=== PATIENT | female | born 1925 | race Caucasian/White ===

== ENCOUNTER 2016-04-13 16:21 | Inpatient (IN) | payer OTHER, MEDICARE ==
[~2016-04-13] VITALS: Ht 167.6 cm; Wt 72.6 kg
[~2016-04-13 16:21] MED LIST: ALENDRONATE SOD70 M2 PO; DAILY MULTIPLE1 EACH PO; EXELON1 EAC1 TOP; FOLIC ACID1 M1 PO; OSCAL PO; SENNA8.6 M3 PO; TRAZODONE HCL50 M1 PO; VITAMIN D350000 UNIT PO
--- NOTE | 2016-04-13 16:27 | NUR ---
89 YO FEMALE BIBA FROM SNF. PT HAD AN UNWITNESSED FALL INJURING HER R HIP. HER EMS, PTS ROOMATE (WHO HAS DEMENTIA) WITNESSED THE FALL AND STATES PT DID NOT HIT HEAD. PT NOTED WITH SHORTNENING AND ROTATION TO R LEG. PT HX OF DEMENTIA
--- NOTE | 2016-04-13 16:43 | ED MVC/FALL/TRAUMA COMPLAINT ---
See Addendum History of Present Illness General Chief Complaint: Hip Injury Stated Complaint: UNWITNESSED FALL, R HIP PAIN Source: patient, old records Exam Limitations: confusion, dementia Vital Signs & Intake/Output Vital Signs & Intake/Output Vital Signs Date Time Temp Pulse Resp B/P Pulse O2 O2 Flow FiO2 Ox Delivery Rate 04/13 2057 98.4 73 18 131/61 90 Room Air 04/13 1836 94 Room Air Room Air 04/13 183 97.3 72 20 144/69 94 Room Air 04/13 1627 97.6 79 18 168/74 93 Room Air Allergies Coded Allergies: donepezil (UNKNOWN 09/02/15) Reconcile Medications Alendronate Sodium 70 MG TABLET 1 TAB PO QW BONE (Reported) in the morning, at least 30 minutes before the first food, beverage, or medication of the day Cholecalciferol (Vitamin D3) (Vitamin D3) 50,000 UNIT CAPSULE 1 CAP PO Q30D SUPPLEMENT (Reported) Folic Acid 1 MG TABLET 1 TAB PO QHS SUPPLEMENT (Reported) Multivitamin (Daily Multiple Vitamin) 1 EACH TABLET 1 TAB PO QHS SUPPLEMENT ( Reported) [OSCAL] TAB SUPPLEMENT (Reported) Rivastigmine (Exelon) 9.5 MG/Patch PAT 1 PAT TOP DAILY UNK (Reported) Sennosides (Senna) 8.6 MG TABLET 2 TAB PO BID CONSTIPATION (Reported) Trazodone HCl 50 MG TABLET 0.5 TAB PO QHS UNK (Reported) Triage Note: 89 YO FEMALE RADHAA FROM [facility]. PT HAD AN UNWITNESSED FALL INJURING HER R HIP. HER EMS, PTS ROOMATE (WHO HAS DEMENTIA) WITNESSED THE FALL AND STATES PT DID NOT HIT HEAD. PT NOTED WITH SHORTNENING AND ROTATION TO R LEG. PT HX OF DEMENTIA Triage Nurses Notes Reviewed? yes Onset: Abrupt Duration: hour(s):, constant, continues in ED Timing: recent history Severity: moderate, severe Method of Injury: fall Loss of Consciousness: unsure No Modifying Factors: none HPI: 89-year-old female comes into emergency room for further evaluation of right hip pain/leg pain after falling at residential. Unwitnessed fall. Patient has gross deformity. Patient not able to ambulate. History of dementia. History is very limited. Patient had a moderate amount of distress denies any other associated symptoms. (LISA DELEON) Past History Travel History Traveled to [place] past 21 day No Medical History Any Pertinent Medical History? see below for history Neurological: dementia Cardiovascular: hypertension, hyperlipidemia Renal: UTI Musculoskeletal: osteoarthritis, R WRIST FX R FEM NECK FX Psychiatric: anxiety Cancer(s): L BREAST MASS Surgical History Surgical History: non-contributory Psychosocial History Who do you live with Patient/Self Services at Home NONE What is your primary language Hebrew Tobacco Use: Never used Family History Hx Contributory? No (LISA DELEON) Review of Systems Review of Systems Constitutional: Reports: no symptoms. Eyes: Reports: no symptoms. Ears, Nose, Throat, Mouth: Reports: no symptoms. Respiratory: Reports: no symptoms. Cardiovascular: Reports: no symptoms. Gastrointestinal/Abdominal: Reports: no symptoms. Genitourinary: Reports: no symptoms. Musculoskeletal: Reports: see HPI. Skin: Reports: no symptoms. Neurological/Psychological: Reports: no symptoms. All Other Systems: Reviewed and Negative (LISA DELEON) Physical Exam Physical Exam General Appearance: alert, awake, moderate distress Head: atraumatic, normal appearance Eyes: Bilateral: normal appearance, EOMI, normal inspection. Ears, Nose, Throat, Mouth: hearing grossly normal Neck: normal inspection, full range of motion Respiratory: normal breath sounds, no respiratory distress Cardiovascular: regular rate/rhythm Gastrointestinal: soft Back: normal inspection Extremities: deformity right hip/femur, swelling, limited range of motion, Neurologic/Psych: disoriented x 3 Skin: intact, normal color Core Measures ACS in differential dx? No Severe Sepsis Present: No Septic Shock Present: No (LISA DELEON) Progress Differential Diagnosis: abd injury, C/T/L spine injury, ext injury, ICH, pelvis injury, pnemothorax, spinal cord injury Plan of Care: Orders Procedure Date/time Status Nothing by Mouth 04/14 B Active Patient Data 04/13 2219 Active Saline Lock 04/13 2111 Active Misc Message 04/13 2111 Active ED Holding Orders 04/13 2111 Active Admit to inpatient 04/13 2111 Active Code Status 04/13 2111 Active [place], Insertion/Removal/Asses 04/13 2038 Active CULTURE,URINE 04/13 2038 Active URINALYSIS 04/13 2038 Active XRY-FEMUR, 2 VIEWS RIGHT 02/03 2019 Active Vital Signs 04/13 2015 Active PARTIAL THROMBOPLASTIN TIME 04/13 1636 Complete PROTHROMBIN TIME 04/13 163 Complete COMPREHENSIVE METABOLIC PANEL 04/13 163 Complete CBC WITHOUT DIFFERENTIAL 04/13 163 Complete EKG 04/13 163 Active TYPE & SCREEN (NOT X-MATCH) 04/13 163 Complete Laboratory Tests 04/13/16 1653: Anion Gap 9, Estimated GFR > 60, BUN/Creatinine Ratio 12.9, Glucose 102 H, Calcium 8.7, Total Bilirubin 0.9, AST 23, ALT 31, Alkaline Phosphatase 70, Total Protein 7.1, Albumin 3.5, Globulin 3.6, Albumin/Globulin Ratio 1.0 L, PT 12.1, INR 1.15, APTT 32, CBC w Diff NO MAN DIFF REQ, RBC 4.44, MCV 87.8, MCH 28.8, RDW 13.6, MPV 9.3, Gran % 74.3, Lymphocytes % 16.4 L, Monocytes % 7.9, Eosinophils % 1.0, Basophils % 0.4, Absolute Granulocytes 5.6, Absolute Lymphocytes 1.2, Absolute Monocytes 0.6, Absolute Eosinophils 0.1, Absolute Basophils 0, PUBS MCHC 32.8 L Microbiology 04/13 2038 URINE ROUT: Urine Culture - ORD Diagnostic Imaging: Viewed by Me: Radiology Read, CT Scan. Discussed w/RAD: Radiology Read, CT Scan. Radiology Impression: EXAM TYPE: RAD - XRY-ANKLE 3 OR MORE VIEWS R; XRY-HIP 2-3 VIEWS, RIGHT; XRY-KNEE, RIGHT EXAMINATION: XR HIP, RIGHT XR KNEE, RIGHT XR ANKLE , RIGHT CLINICAL INFORMATION: Status post fall. Pain. COMPARISON: None TECHNIQUE : Two views of the right knee. 2 views of the right hip. 3 views of the right ankle. FINDINGS: Right hip: There is a right hip hemiarthroplasty. The femoral head component articulates appropriately with the acetabulum. No periprosthetic lucency or fracture. The visualized portion of the hemipelvis is intact. Right knee: There is a comminuted mid to distal right femoral diaphyseal fracture. There is posterior angulation of the distal fragment. There is medial displacement of the distal fragment. Alignment at the knee is maintained. Mild to moderate tricompartmental degenerative changes are present. Right ankle: No acute fracture or dislocation. The ankle mortise is congruent. Mild soft tissue swelling. Prominent heel spurs. Vascular calcifications noted. IMPRESSION: Comminuted mid to distal femoral diaphyseal fracture with displacement and angulation of the distal fragment. No acute fracture at the right hip or right ankle. Right hip hemiarthroplasty intact. Degenerative changes at the ankle. DICTATED BY: THIERRY PETTY MD DATE/TIME DICTATED:04/13/161824 HIDE SELECTOR:NAT DATE/TIME TRANSCRIBED:04/13/161824, SERVICE DATE : 04/13/16 EXAM TYPE: CAT - CT HEAD WO IV CONTRAST EXAMINATION: CT HEAD WITHOUT CONTRAST CLINICAL INFORMATION: Trauma, fall with pain. COMPARISON: 09/01 TECHNIQUE: Contiguous axial imaging was performed from the skull base to vertex without intravenous contrast. DLP: 601 mGy-cm. FINDINGS: There is no evidence of acute intracranial hemorrhage or territorial infarction. No abnormal mass effect or midline shift is seen. Melton to white matter differentiation is well preserved. No extra-axial fluid collections are identified. No hydrocephalus. Proportional prominence of the ventricles and sulcal spaces is consistent with moderate volume loss. Patchy periventricular and deep white matter hypoattenuation is consistent with moderate small vessel ischemic changes. The osseous structures and soft tissues are normal. There is an air- fluid level within the left maxillary sinus. The remaining paranasal sinuses are well aerated. The mastoid air cells are well-aerated. IMPRESSION: No acute intracranial pathology. Moderate volume loss with small vessel ischemic changes. DICTATED BY: JOVANNY BEASLEY,THIERRY DATE/TIME DICTATED:04/13/161702 Initial ED EKG: normal intervals, normal p-waves, normal sinus rhythm, rate (65, pacs) Hand-Off Endorsed To: CALE REA MD Endorsed Time: 2000 Pending: other (othro consult) Comments: 04/13/2016 7:41:37 PM Multiple calls have been placed orthopedic. I spoke with Dr. Duvall. The patient is a patient of [facility]. Multiple calls have been placed to their service with no response at this time. Waiting on them to call back before patient can be admitted. (XAVIER KEARNS,LISA) Departure Departure Disposition: HOME OR SELF CARE Condition: Stable Clinical Impression Primary Impression: Right femoral shaft fracture Referrals: Mimi JC MD (PCP/Family) Departure Forms: Customer Survey General Discharge Information Admission Note Documentation of Exam: Documentation of any treatments & extenuating circumstances including Concerns Regarding Discharge (functional status, medication knowledge or non-compliance, living conditions, etc.) that warrant an admission rather than observation: Patient will require surgery. High risk. Medical clearance. IV pain control. (XAVIER KEARNS,LISA) Departure Comments Discussed with Dr. Tovar. If hospital team is able to medically clear the patient this morning, he will take her to surgery. Admission Note Spoke With: MUSHTAQ COBOS MD (ÁLVARO BEASLEY,CALE Marie) Critical Care Note Critical Care Note Critical Care Time: 30-74 min (LISA DELEON)
--- NOTE | 2016-04-13 16:51 | NUR ---
IV EST. PT MEDICATED WITH 2MG IV MORPHINE. [facility].
[2016-04-13 17:05] LABS: ABSOLUTE BASOPHIL COUNT 0 /CUMM (0.0-0.2); ABSOLUTE EOSINOPHIL COUNT 0.1 /CUMM (0.0-0.7); ABSOLUTE GRANULOCYTE CT 5.6 /CUMM (1.4-6.5); ABSOLUTE LYMPH COUNT 1.2 /CUMM (1.2-3.4); ABSOLUTE MONOCYTE COUNT 0.6 /CUMM (0.10-0.60); BASOPHIL % 0.4 % (0.0-2.0); GRANULOCYTE % 74.3 % (42.2-75.2); MEAN CORPUSCULAR HGB 28.8 PG (27.0-31.0); MEAN CORPUSCULAR HGB CONC 32.8 G/DL (33.0-37.0); MEAN CORPUSCULAR VOLUME 87.8 FL (81.0-99.0); MEAN PLATELET VOLUME 9.3 FL (7.4-10.4); PLATELET COUNT 144 /CUMM (130-400); RBC DISTRIBUTION WIDTH 13.6 % (11.5-14.5); RED BLOOD CELL CT 4.44 /CUMM (4.20-5.40); WHITE BLOOD CELL COUNT 7.6 /CUMM (4.8-10.8)
[2016-04-13 17:15] LABS: PT 12.1 SEC (9.4-12.5); PTT 32 SEC (25-37)
--- NOTE | 2016-04-13 17:16 | CT SCAN REPORT ---
EXAMINATION: CT HEAD WITHOUT CONTRAST CLINICAL INFORMATION: Trauma, fall with pain. COMPARISON: 09/02/2015 TECHNIQUE: Contiguous axial imaging was performed from the skull base to vertex without intravenous contrast. DLP: 601 mGy-cm. FINDINGS: There is no evidence of acute intracranial hemorrhage or territorial infarction. No abnormal mass effect or midline shift is seen. Melton to white matter differentiation is well preserved. No extra-axial fluid collections are identified. No hydrocephalus. Proportional prominence of the ventricles and sulcal spaces is consistent with moderate volume loss. Patchy periventricular and deep white matter hypoattenuation is consistent with moderate small vessel ischemic changes. The osseous structures and soft tissues are normal. There is an air-fluid level within the left maxillary sinus. The remaining paranasal sinuses are well aerated. The mastoid air cells are well-aerated. IMPRESSION: No acute intracranial pathology. Moderate volume loss with small vessel ischemic changes.
--- NOTE | 2016-04-13 18:30 | RADIOLOGY REPORT ---
EXAMINATION: XR HIP, RIGHT XR KNEE, RIGHT XR ANKLE, RIGHT CLINICAL INFORMATION: Status post fall. Pain. COMPARISON: None TECHNIQUE: Two views of the right knee. 2 views of the right hip. 3 views of the right ankle. FINDINGS: Right hip: There is a right hip hemiarthroplasty. The femoral head component articulates appropriately with the acetabulum. No periprosthetic lucency or fracture. The visualized portion of the hemipelvis is intact. Right knee: There is a comminuted mid to distal right femoral diaphyseal fracture. There is posterior angulation of the distal fragment. There is medial displacement of the distal fragment. Alignment at the knee is maintained. Mild to moderate tricompartmental degenerative changes are present. Right ankle: No acute fracture or dislocation. The ankle mortise is congruent. Mild soft tissue swelling. Prominent heel spurs. Vascular calcifications noted. IMPRESSION: Comminuted mid to distal femoral diaphyseal fracture with displacement and angulation of the distal fragment. No acute fracture at the right hip or right ankle. Right hip hemiarthroplasty intact. Degenerative changes at the ankle.
--- NOTE | 2016-04-13 18:32 | RADIOLOGY REPORT ---
EXAMINATION: 1. CHEST PORTABLE. 2. RIGHT RIBS. CLINICAL INFORMATION: Fall. Right rib pain. COMPARISON: Chest x-ray 09/02/2015 TECHNIQUE: Single view chest portable 5:29 PM. 3 views of right ribs. FINDINGS: No acute change of the chest. No pleural effusion. No pneumothorax. Heart size is enlarged. Mild increased interstitial lung markings similar prior chest exam. There are calcifications of thoracic aorta. No displaced right rib fracture. Chronic deformity of the right humeral head and neck from old healed fracture IMPRESSION: No acute change of chest. No displaced right rib fracture.
--- NOTE | 2016-04-13 18:50 | NUR ---
PT MEDICATED WITH DILAUDID PER ORDERS SISTER REMAINS AT BEDSIDE
--- NOTE | 2016-04-13 19:03 | NUR ---
PT TURNED WITH ASSIST OF 3 STAFF TO REMOVE EXTRA LINENS AND FIX SHEET UNDERNEATH HER S/P CT SCAN. SISTER REMAINS AT BEDSIDE.
--- NOTE | 2016-04-13 19:31 | NUR ---
ASSUMED CARE FROM LUKE Galicia RN
--- NOTE | 2016-04-13 19:50 | NUR ---
PT REPORTS PAIN DECREASING AFTER BEING MEDICATED. PT APPEARS COMFORTBALE. FAMILY AT BEDSIDE.
--- NOTE | 2016-04-13 20:41 | NUR ---
PT MEDICATED FOR PAIN AND LEG SPLINTED.
--- NOTE | 2016-04-13 21:29 | NUR ---
PT AWAKE AND ORIENTED TO PERSON. RESP UNLABORED. SKIN WARM AND DRY. FAMILY AT BEDSIDE. WILL CONTINUE TO MONITOR.
--- NOTE | 2016-04-13 22:15 | History & Physical ---
TODD BEASLEY,HUGH 04/13/16 6075: General Information and HPI MD Statement: I have seen and personally examined SHAUNA BARROW and documented this H&P. The patient is a 89 year old F who presented with chief complaint of fall injury. Source of Information: family, Sister Exam Limitations: dementia History of Present Illness: 89 years old female with past medical history of vision problem secondary to macular degeneration, dementia, hypertension, hyperlipidemia, osteoarthritis, repeated falls and fractures in the past was brought in by ambulance from her nursing facility after sustaining a fall injury around 2:15 PM earlier today. The patient has baseline dementia and is unable to provide a proper history some much of the history was provided by her sister, who did not herself witnessed the fall. According to patient's sister, patient was last visited by her on Saturday when she was walking around without help of a walker or a cane as she was in her usual state of health with dementia. Patient was reported to have sustained a fall injury at 2:15 PM earlier today and fell on her right side of her hip, after which she had right leg swelling and pain in right side of her hip. The fall was unwitnessed, so we did not know whether her head was hit or that she lost consciousness. There was no bowel or bladder incontinence though. There was no bleeding or open wound. Allergies/Medications Allergies: Coded Allergies: donepezil (UNKNOWN 09/02/15) Home Med list Alendronate Sodium 70 MG TABLET 1 TAB PO QW BONE (Reported) in the morning, at least 30 minutes before the first food, beverage, or medication of the day Cholecalciferol (Vitamin D3) (Vitamin D3) 50,000 UNIT CAPSULE 1 CAP PO Q30D SUPPLEMENT (Reported) Folic Acid 1 MG TABLET 1 TAB PO QHS SUPPLEMENT (Reported) Multivitamin (Daily Multiple Vitamin) 1 EACH TABLET 1 TAB PO QHS SUPPLEMENT ( Reported) [OSCAL] TAB SUPPLEMENT (Reported) Rivastigmine (Exelon) 9.5 MG/Patch PAT 1 PAT TOP DAILY UNK (Reported) Sennosides (Senna) 8.6 MG TABLET 2 TAB PO BID CONSTIPATION (Reported) Trazodone HCl 50 MG TABLET 0.5 TAB PO QHS UNK (Reported) Past History Travel History Traveled to [place] past 21 day No Medical History Neurological: dementia Cardiovascular: hypertension, hyperlipidemia Renal: UTI Musculoskeletal: osteoarthritis, R WRIST FX R FEM NECK FX Psychiatric: anxiety Cancer(s): L BREAST MASS Surgical History Surgical History: non-contributory Past Family/Social History Psychosocial History Where do you live? Alf Facility Services at Home: NONE Primary Language: Yoruba Functional Ability ADLs Independent: dressing, toileting. Needs Assist: eating, bathing. Ambulation: independent IADLs Needs Assist: shopping, housework, finances, food prep, telephone, transportation, medication admin. Review of Systems Review of Systems Constitutional: Reports: no symptoms. EENTM: Reports: no symptoms. Cardiovascular: Reports: no symptoms. Respiratory: Reports: no symptoms. GI: Reports: no symptoms. Genitourinary: Reports: no symptoms. Musculoskeletal: Reports: see HPI, joint pain, joint swelling (right hip). Skin: Reports: no symptoms. Neurological/Psychological: Reports: no symptoms. Hematologic/Endocrine: Reports: no symptoms. All Other Systems: Reviewed and Negative Post Menopausal: Yes Exam & Diagnostic Data Last 24 Hrs of Vital Signs/I&O Vital Signs Date Time Temp Pulse Resp B/P Pulse O2 O2 Flow FiO2 Ox Delivery Rate 04/14 0133 98.2 92 20 142/60 96 Nasal 2.5L Cannula 04/14 0130 94 Nasal 2.0L Cannula 04/14 0047 97.6 89 18 138/77 94 Nasal 2.0L Cannula 04/13 2247 97.3 67 18 140/86 92 Nasal 2.0L Cannula 04/13 2058 98.4 73 18 131/61 90 Room Air 04/13 1836 94 Room Air Room Air 04/13 1831 97.3 72 20 144/69 94 Room Air 04/13 1627 97.6 79 18 168/74 93 Room Air Intake & Output 04/14 0800 04/14 0000 04/13 1600 Intake Total 0 Output Total Balance 0 Intake, Oral 0 Patient 72.575 kg 72.575 kg Weight Physical Exam General Appearance Alert, Mild Distress, Disoriented, Not cooperative, taking off her nasal canula for oxygen Last 24 Hrs of Labs/Fidel: Laboratory Tests 04/14/16 0105: Urine Color YEL, Urine Clarity CLEAR, Urine pH 6.0, Ur Specific [place] 1.025, Urine Protein NEG, Urine Ketones 15 H, Urine Nitrite NEG, Urine Bilirubin NEG, Urine Urobilinogen 0.2, Ur Leukocyte Esterase NEG, Ur Microscopic EXAM NOT REQUIRED, Urine Hemoglobin NEG, Urine Glucose NEG 04/13/16 1653: Anion Gap 9, Estimated GFR > 60, BUN/Creatinine Ratio 12.9, Glucose 102 H, Calcium 8.7, Total Bilirubin 0.9, AST 23, ALT 31, Alkaline Phosphatase 70, Total Protein 7.1, Albumin 3.5, Globulin 3.6, Albumin/Globulin Ratio 1.0 L, PT 12.1, INR 1.15, APTT 32, CBC w Diff NO MAN DIFF REQ, RBC 4.44, MCV 87.8, MCH 28.8, RDW 13.6, MPV 9.3, Gran % 74.3, Lymphocytes % 16.4 L, Monocytes % 7.9, Eosinophils % 1.0, Basophils % 0.4, Absolute Granulocytes 5.6, Absolute Lymphocytes 1.2, Absolute Monocytes 0.6, Absolute Eosinophils 0.1, Absolute Basophils 0, PUBS MCHC 32.8 L Microbiology 04/14 104 URINE ROUT: Urine Culture - RECD Diagnostic Data EKG Results Sinus arrhythmia and some PACs with heart rate 65, QRS 116, QTC 458, AR 136 CXR Results CXR: IMPRESSION: No acute change of chest. No displaced right rib fracture. DICTATED BY: MARIA TERESA MARION MD DATE/TIME DICTATED:04/13/161825 VAN OWNER OPERATOR:GARCIA DATE/TIME TRANSCRIBED:04/13/161825 Femur x-ray right: IMPRESSION: Comminuted distal right femoral fracture. DICTATED BY: KHURRAM FLORES MD DATE/TIME DICTATED:04/14/1699 VAN OWNER OPERATOR:RADJorgeGARCIA DATE/TIME TRANSCRIBED:04/14/[address]: IMPRESSION: No acute intracranial pathology. Moderate volume loss with small vessel ischemic changes. DICTATED BY: THIERRY PETTY MD DATE/TIME DICTATED:04/13/161702 VAN OWNER OPERATOR:RADJorgeGARCIA DATE/TIME TRANSCRIBED:04/13/161702 Hip x-ray: IMPRESSION: Comminuted mid to distal femoral diaphyseal fracture with displacement and angulation of the distal fragment. No acute fracture at the right hip or right ankle. Right hip hemiarthroplasty intact. Degenerative changes at the ankle. DICTATED BY: THIERRY PETTY MD DATE/TIME DICTATED:04/13/161824 VAN OWNER OPERATOR:NAT DATE/TIME TRANSCRIBED:04/13/161824 Other Results Physical examnination: General: [well nourished] patient in mild distress, not speaking much, demented, disoriented Head: Normocephalic, atraumatic Eyes: Pupils normal in size, regular, reacting to light and accommodation, EOM normal Ears: B/l normal on inspection Nose: Normal on inspection Throat/mouth: Moist mucosa Neck: Supple, no thyromegaly Heart: Regular rate, regular rhythm, Systolic murmur heard Lung: Normal breath sound bilaterally Abd: Soft, non-tender, no distention appreciated Back: Normal range of motion Extremities: Right lower extermity is under posterior slab, distal capillary refill is <2sec Neurologic: Dementia present, not speaking, so could not assess fully Speech is clear and coherent Skin: Warm and dry Psychiatric: Could not assess due to patient's condition Assessment/Plan Assessment: 89 years old female with past medical history of present problem secondary to macular degeneration, dementia, hypertension, hyperlipidemia, osteoarthritis, repeated falls and fractures in the past was brought in by ambulance from her nursing facility after sustaining a fall injury around 2:15 PM earlier today. She is currently being managed in the general medical floor for the following issues: #Comminuted fracture of right femur with displacement and angulation With the risk of fat embolism, massive bleeding/hematoma formation, and malunion , the fracture needs urgent reduction per surgical team and wants to operate upon in the AM. Surgical PA did mention that if she is fit for surgery then they would proceed with one, and in case if not right away while at , she needs referral to higher center but she does require urgent surgical intervention. -Accordingly, her risk of major cardiac event was calculated by RCRI which turns to be 0, i.e. 0.4% of any major cardiac complication. This is however based on her latest Echo as well which was done in June 2010 which did not show signs of heart failure. -Power of commercial attorney are her son Bebo and sister, both of whom have been explained and agree to the plan to proceed with the surgery, and understand the risk and benefits of the procedure. The fact that she was ambulating well without walker or cane before this might also have been a factor in decision making process. -Posterior slab has already been placed in the ED. -Plan for surgery in the AM. -Adequate analgesia till then. -NPO until the procedure. -DVT ppx held for now, need to discuss with the surgical team for ppx after the procedure. -The patient appearantly has will not to be resuscitated, which will be respected, but during the procedure, she will be made full code and the POA agrees to it. -This process is based on the fact that the patient is demented and cannot make her own decisions, and her POA are deciding per her interests. #Can continue rest of her medications after the surgery per patient's condition. #NPO for now. #DVT ppx as mentioned above. #Code status: DNR/DNI for now, will be full code during the procedure per POA. As Ranked By This Provider Problem List: 1. Right femoral shaft fracture Core Measures/Miscellaneous Acute Coronary Syndrome ACS Diagnosis: No Cerebrovascular Accident CVA/TIA Diagnosis: No Congestive Heart Failure CHF Diagnosis: No Venous Thromboembolism VTE Risk Factors: Immobility, paresis, Surgery VTE Prophylaxis Ordered Inpt: Mechanical (ALPS/TEDS) [facility] prophylaxis d/t: No contraindications No VTE Pharm Prophylaxis d/t: Surgical contraindication VTE Diagnosis: No VTE Type: NONE VTE Confirmed by (Test): NONE Severe Sepsis Severe Sepsis Present: No Septic Shock Septic Shock Present: No Miscellaneous Documentation Attending Case Discussed With: MUSHTAQ COBOS MD Primary Care Physician: Mimi JC MD Patient sees these Specialists Orthopedic surgeon Level of Patient Care: General Medicine MUSHTAQ COBOS 04/14/16 0326: Attending Review Statement Attending Statement Attending Statement: examined this patient, discuss w/resident/PA/COLOR STRAINING BAG WASHER, agreed w/resident/PA/COLOR STRAINING BAG WASHER, discussed with family, reviewed EMR data (avail), reviewed images, amended to note Attending Assessment/Plan: Cc: Fall PMH: Dementia, HLD, S/P hysterectomy, S/P cholecystectomy, multiple falls and fractures She was brought in from [facility] for unwitnessed fall and the right leg swelling and shortening. According to the chart patient's roommate who has dementia witnessed the fall patient did not have any head trauma. Patient has significant dementia and does not complain much. History obtain from patient's sister who is bedside. At baseline patient is ambulating with assistance, not much communicating. Vitals: Afebrile, HR, RR, BP, O2 saturation in acceptable range. On exam: Patient does not hold meaningful conversation, sometimes sees few words. Moves all her extremities except right lower extremity voluntarily but without instructions.. No apparent neurological weakness. CVS: S1-S2, irregular, aortic area systolic murmur 2/6. RS: Clear to auscultate. Abdomen: Soft, NT, ND, bowel sounds present. Right lower extremity is stabilized with splint, left lower extremity no obvious edema or rashes. Labs: CBC, BMP, LFT unremarkable, INR 1.15 EKG: Sinus rhythm, premature atrial complexes, no obvious Q waves X-ray femur, CT head, extended trips, extremity, x-ray hip, x-ray chest, x-ray ankle was obtained : Comminuted distal right femoral fracture. No acute intracranial pathology. Moderate volume loss with small vessel ischemic changes. No acute change of chest. No displaced right rib fracture.Comminuted mid to distal femoral diaphyseal fracture with displacement and angulation of the distal fragment. No acute fracture at the right hip or right ankle. Right hip hemiarthroplasty intact. Degenerative changes at the ankle. A and P #1 fall: Appears to be mechanical #2 femur fracture: Orthopedic consulted, plan for surgery tomorrow. #3 preop risk evaluation: Patient does not have any significant coronary artery disease according to charts and family, no Q waves on EKG, no significant arrhythmias, last echocardiogram done in 2010 shows mild diastolic dysfunction with mild and mild MR, progression of disease is possible at this age but patient has no symptoms, was not hospitalized for any respiratory or cardiac symptoms. RCRI is 1% for VA, pulmonary edema or acute cardiac events and low risk for adverse outcomes of surgery . Patient would have benefited from 2-D echo, but at this point clinically low yield. Cardiac and overall risks are discussed with patient's sister and patient's son. Risks and benefits were discussed. Son suggested to proceed with surgery. #4 adequate pain management, avoid excessive opiates to avoid hospital associated delirium #5 living will mentions DNR/DNI. Patient's son Bebo Barrow phone number . ELAINE VELASQUEZ MD 04/14/16 0614: Resident Review Statement Resident Statement: examined this patient, discussed with operations intern, agreed with operations intern
--- NOTE | 2016-04-13 22:48 | NUR ---
PT AND SISTER REFUSING X-RAY. PT 85% RA. NC APPLIED. PT CONTINUES TO REMOVE O2. PT MEDICATED WITH HALDOL PER ORDER.
--- NOTE | 2016-04-13 23:13 | NUR ---
Emergency Dept [facility] Admit Note: To be admitted to [facility] by PAPITO with FEMORAL FX as the diagnosis, to location. Nursing Floor Sweeper and admitting notified 04/13/16 at
--- NOTE | 2016-04-13 23:27 | NUR ---
PT APPEARS MORE COMFORTABLE AFTER BEING MEDICATED. RESP UNLABORED. 93% 3 L
--- NOTE | 2016-04-13 23:59 | Cons- Orthopedic ---
General Information and HPI Consulting Request Date of Consult: 04/13/16 Requested By: MUSHTAQ COBOS MD Reason for Consult: Right femur fracture Source of Information: family, old records Exam Limitations: clinical condition, dementia History of Present Illness: Ms Stockton is an 89-year-old female resident of [facility] with past medical history of dementia sustained an unwitnessed fall this evening. She was found on the floor with a deformed right thigh and unable to ambulate. She was transferred to [facility] at which time x-rays were taken demonstrating a comminuted right mid shaft femur fracture. She was also evaluated by the emergency room with various other x-rays and scans and this appears to be an isolated fracture. She is awake but confused and the majority discussion was done through her daughter in the room she appears to have no other complaints at this time Allergies/Medications Allergies: Coded Allergies: donepezil (UNKNOWN 09/02/15) Home Med List: Alendronate Sodium 70 MG TABLET 1 TAB PO QW BONE (Reported) in the morning, at least 30 minutes before the first food, beverage, or medication of the day Cholecalciferol (Vitamin D3) (Vitamin D3) 50,000 UNIT CAPSULE 1 CAP PO Q30D SUPPLEMENT (Reported) Folic Acid 1 MG TABLET 1 TAB PO QHS SUPPLEMENT (Reported) Multivitamin (Daily Multiple Vitamin) 1 EACH TABLET 1 TAB PO QHS SUPPLEMENT ( Reported) [OSCAL] TAB SUPPLEMENT (Reported) Rivastigmine (Exelon) 9.5 MG/Patch PAT 1 PAT TOP DAILY UNK (Reported) Sennosides (Senna) 8.6 MG TABLET 2 TAB PO BID CONSTIPATION (Reported) Trazodone HCl 50 MG TABLET 0.5 TAB PO QHS UNK (Reported) Current Medications: Current Medications Sig/Hai Start time Last Medication Dose Route Stop Time Status Admin Diazepam 0 .STK-MED ONE 04/13 2030 DC .ROUTE Diazepam 2 MG ONCE ONE 04/13 2029 DC 04/13 IV 04/13 Haloperidol 0 .STK-MED ONE 04/13 2244 DC .ROUTE Haloperidol 2.5 MG STAT STA 04/13 2240 DC 04/13 IM 04/13 Hydromorphone HCl 0 .STK-MED ONE 04/13 1847 DC .ROUTE Hydromorphone HCl 0.4 MG ONCE ONE 04/13 1844 DC / IV 04/13 1846 1850 Morphine Sulfate 4 MG ONCE ONE 04/13 2245 CAN IV 04/13 2245 Morphine Sulfate 0 .STK-MED ONE 04/13 2242 DC .ROUTE Morphine Sulfate 4 MG ONCE ONE 04/13 2030 DC 02/03 IV 04/13 Morphine Sulfate 0 .STK-MED ONE 04/13 2024 DC .ROUTE Morphine Sulfate 0 .STK-MED ONE 04/13 164 DC .ROUTE Morphine Sulfate 2 MG ONCE ONE 04/13 164 DC 04/13 IV 04/13 164 165 Past History Medical History Neurological: dementia Cardiovascular: hypertension, hyperlipidemia Renal: UTI Musculoskeletal: osteoarthritis, R WRIST FX R FEM NECK FX Psychiatric: anxiety Cancer(s): L BREAST MASS Surgical History Pertinent Surgical History: non-contributory Psychosocial History Services at Home: NONE Exam & Diagnostic Data Vital Signs and I&O Vital Signs Date Time Temp Pulse Resp B/P Pulse O2 O2 Flow FiO2 Ox Delivery Rate 04/13 2246 97.3 67 18 140/86 92 Nasal 2.0L Cannula 04/13 2057 98.4 73 18 131/61 90 Room Air 04/13 183 94 Room Air Room Air 04/13 183 97.3 72 20 144/69 94 Room Air 04/13 162 97.6 79 18 168/74 93 Room Air Physical Exam General Appearance: awake, anxious, moderate distress Head: normal appearance Eyes: Bilateral: normal appearance. Respiratory: normal breath sounds, chest non-tender, no respiratory distress Cardiovascular: regular rate/rhythm Gastrointestinal: soft, non-tender, distention, guarding Back: vertebral tenderness Extremities: right lower extremity splinted from foot to proximal thigh, right foot is warm, moves toes on right foot to command, capillary refill brisk all other extremities are unremarkable Neurologic/Psych: awake Skin: normal color Last 24 Hours of Labs: Laboratory Tests 04/13 1652 Chemistry Sodium (137 - 145 mmol/L) 138 Potassium (3.5 - 5.1 mmol/L) 3.7 Chloride (98 - 107 mmol/L) 99 Carbon Dioxide (22 - 30 mmol/L) 29 Anion Gap (5 - 16) 9 BUN (7 - 17 mg/dL) 9 Creatinine (0.5 - 1.0 mg/dL) 0.7 Estimated GFR (>60 ml/min) > 60 BUN/Creatinine Ratio (7 - 25 %) 12.9 Glucose (65 - 99 mg/dL) 102 H Calcium (8.4 - 10.2 mg/dL) 8.7 Total Bilirubin (0.2 - 1.3 mg/dL) 0.9 AST (14 - 36 U/L) 23 ALT (9 - 52 U/L) 31 Alkaline Phosphatase (<127 U/L) 70 Total Protein (6.3 - 8.2 g/dL) 7.1 Albumin (3.5 - 5.0 g/dL) 3.5 Globulin (1.9 - 4.2 gm/dL) 3.6 Albumin/Globulin Ratio (1.1 - 2.2 %) 1.0 L Coagulation PT (9.4 - 12.5 SEC) 12.1 INR (0.90 - 1.19) 1.15 APTT (25 - 37 SEC) 32 Hematology CBC w Diff NO MAN DIFF REQ WBC (4.8 - 10.8 /CUMM) 7.6 RBC (4.20 - 5.40 /CUMM) 4.44 Hgb (12.0 - 16.0 G/DL) 12.8 Hct (37 - 47 %) 39.0 MCV (81.0 - 99.0 FL) 87.8 MCH (27.0 - 31.0 PG) 28.8 RDW (11.5 - 14.5 %) 13.6 Plt Count (130 - 400 /CUMM) 144 MPV (7.4 - 10.4 FL) 9.3 Gran % (42.2 - 75.2 %) 74.3 Lymphocytes % (20.5 - 51.1 %) 16.4 L Monocytes % (1.7 - 9.3 %) 7.9 Eosinophils % (0 - 5 %) 1.0 Basophils % (0.0 - 2.0 %) 0.4 Absolute Granulocytes (1.4 - 6.5 /CUMM) 5.6 Absolute Lymphocytes (1.2 - 3.4 /CUMM) 1.2 Absolute Monocytes (0.10 - 0.60 /CUMM) 0.6 Absolute Eosinophils (0.0 - 0.7 /CUMM) 0.1 Absolute Basophils (0.0 - 0.2 /CUMM) 0 PUBS MCHC (33.0 - 37.0 G/DL) 32.8 L Imaging Results: JADA DATE: 04/13/16 EXAM TYPE: RAD - XRY-ANKLE 3 OR MORE VIEWS R; XRY-HIP 2-3 VIEWS, RIGHT; XRY-KNEE , RIGHT EXAMINATION: XR HIP, RIGHT XR KNEE, RIGHT XR ANKLE, RIGHT CLINICAL INFORMATION: Status post fall. Pain. COMPARISON: None TECHNIQUE: Two views of the right knee. 2 views of the right hip. 3 views of the right ankle. FINDINGS: Right hip: There is a right hip hemiarthroplasty. The femoral head component articulates appropriately with the acetabulum. No periprosthetic lucency or fracture. The visualized portion of the hemipelvis is intact. Right knee: There is a comminuted mid to distal right femoral diaphyseal fracture. There is posterior angulation of the distal fragment. There is medial displacement of the distal fragment. Alignment at the knee is maintained. Mild to moderate tricompartmental degenerative changes are present. Right ankle: No acute fracture or dislocation. The ankle mortise is congruent. Mild soft tissue swelling. Prominent heel spurs. Vascular calcifications noted. IMPRESSION: Comminuted mid to distal femoral diaphyseal fracture with displacement and angulation of the distal fragment. No acute fracture at the right hip or right ankle. Right hip hemiarthroplasty intact. Degenerative changes at the ankle. DICTATED BY: THIERRY PETTY MD DATE/TIME DICTATED:04/13/161824 SEAM PRESSER:NAT DATE/TIME TRANSCRIBED:04/13/161824 Assessment/Plan Assessment/Plan Ms Stockton is 89-year-old female who sustained a comminuted right midshaft femur fracture from an unwitnessed fall at an area halfway. The patient will be admitted to the medical service and when she is cleared she will be taken to the operating room for open reduction internal fixation of right femur fracture. The urgency for early fixation was explained to the medical staff and they are aware. Plan Admit to the medical service Nothing by mouth after midnight Optimization and clearance for surgery in a.m. Dr. Vega is aware and will be the orthopedic attending of record and will evaluate the patient in the a.m. his desires to take the patient to the operating room tomorrow morning for ORIF of right midshaft femur fracture Consult Acknowledgment - Thank you for your consult request.
--- NOTE | 2016-04-14 01:06 | RADIOLOGY REPORT ---
EXAMINATION: XR FEMUR, RIGHT CLINICAL INFORMATION: Right femur fracture. Follow-up abnormal exam. COMPARISON: Multiple same day extremity radiographs. TECHNIQUE: AP and lateral views of the right femur were obtained. FINDINGS: Again identified is a comminuted oblique fracture to the distal right femoral shaft. Alignment is adequate. There is diffuse soft tissue swelling. A right hip prosthesis is intact without failure or migration. IMPRESSION: Comminuted distal right femoral fracture.
--- NOTE | 2016-04-14 01:10 | NUR ---
X RAY TAKEN AND MARION INSERTED. PT TOLERTED WELL. PT A/O TO PERSON. RESP UNLABORED. NO APPARENT DISTRESS
[2016-04-14 01:33] VITALS: BP 142/60
--- NOTE | 2016-04-14 03:31 | Admission Certification ---
Admission Certification Certification Statement - As attending physician, I certify that at the time of - admission, based on clinical presentation, severity of - symptoms, need for further diagnostic testing and - therapeutic interventions, and risk of adverse outcomes - without in-hospital treatment, in my clinical assessment, - this patient requires an acute hospital stay for a minimum - of two nights or longer. I have also considered psychsocial - factors such as support system, advanced age, financial - issues, cognitive issues, and failed out-patient treatments, - past re-admission history, safety of patient, and lack of - compliance as applicable. Specific rationale supporting this admission is: Fall, right femur fracture
--- NOTE | 2016-04-14 06:39 | PN- Housestaff ---
RON BEASLEY,EALINE 04/14/16 0616: Subjective Follow-up For: Right Femur Fracture Complaints: no complaints Subjective: No complaints, lying comfortably in bed Review of Systems Constitutional: Reports: see HPI. EENTM: Reports: see HPI. Cardiovascular: Reports: see HPI. Respiratory: Reports: see HPI. Gastrointestinal: Reports: see HPI. Genitourinary: Reports: see HPI. Musculoskeletal: Reports: joint pain. Skin: Reports: change in skin color. Neurological/Psychological: Reports: see HPI. Objective Last 24 Hrs of Vital Signs/I&O Vital Signs Date Time Temp Pulse Resp B/P Pulse O2 O2 Flow FiO2 Ox Delivery Rate 04/14 013 98.2 92 20 142/60 96 Nasal 2.5L Cannula 04/14 0130 94 Nasal 2.0L Cannula 04/14 004 97.6 89 18 138/77 94 Nasal 2.0L Cannula 04/13 224 97.3 67 18 140/86 92 Nasal 2.0L Cannula 04/13 2058 98.4 73 18 131/61 90 Room Air 04/13 1836 94 Room Air Room Air 04/13 1831 97.3 72 20 144/69 94 Room Air 04/13 1627 97.6 79 18 168/74 93 Room Air Intake & Output 04/14 0800 04/14 0000 04/13 1600 Intake Total 0 Output Total 250 Balance -250 0 Intake, Oral 0 Output, Urine 250 Patient 160 lb 160 lb Weight Physical Exam General Appearance: Alert HEENT: Atraumatic, PERRLA, EOMI, Mucous Membr. moist/pink Neck: Supple, No JVD, No thryomegaly Cardiovascular: Regular Rate, Normal S1, Normal S2, murmur Lungs: Clear to Auscultation, Normal Air Movement Abdomen: Normal Bowel Sounds, Soft, No Tenderness Extremities: Normal Pulses, right distal femour wrapped Current Medications: Current Medications Sig/Hai Start time Last Medication Dose Route Stop Time Status Admin Acetaminophen 650 MG Q6P PRN 04/14 329 AC PO Acetaminophen 1,000 MG Q8P PRN 04/14 329 AC IV Diazepam 0 .STK-MED ONE 04/13 2030 DC .ROUTE Diazepam 2 MG ONCE ONE 04/13 2029 DC 04/13 IV 04/13 Haloperidol 0 .STK-MED ONE 02/03 2245 DC .ROUTE Haloperidol 2.5 MG STAT STA 04/13 2240 DC 04/13 IM 04/13 2241 224 Hydromorphone HCl 0 .STK-MED ONE 04/13 184 DC .ROUTE Hydromorphone HCl 0.4 MG ONCE ONE 04/13 1845 DC 04/13 IV 04/13 184 1850 Morphine Sulfate 2 MG Q6PRN PRN 04/14 0330 AC IV Morphine Sulfate 4 MG ONCE ONE 04/13 2244 CAN IV 04/13 2245 Morphine Sulfate 0 .STK-MED ONE 04/13 2242 DC .ROUTE Morphine Sulfate 4 MG ONCE ONE 04/13 2029 DC / IV 04/13 Morphine Sulfate 0 .STK-MED ONE 04/13 2024 DC .ROUTE Morphine Sulfate 0 .STK-MED ONE 04/13 1649 DC .ROUTE Morphine Sulfate 2 MG ONCE ONE 04/13 1645 DC 04/13 IV 04/13 1646 1651 Polyethylene Glycol 17 GM DAILY 04/14 1000 AC PO Rivastigmine 9.5 MG DAILY 04/14 1000 AC TOP Senna/Docusate Sodium 1 TAB BID PRN 04/14 0330 AC PO Last 24 Hrs of Lab/Fidel Results Last 24 Hrs of Labs/Mics: Laboratory Tests 04/14/16 0105: Urine Color YEL, Urine Clarity CLEAR, Urine pH 6.0, Ur Specific [place] 1.025, Urine Protein NEG, Urine Ketones 15 H, Urine Nitrite NEG, Urine Bilirubin NEG, Urine Urobilinogen 0.2, Ur Leukocyte Esterase NEG, Ur Microscopic EXAM NOT REQUIRED, Urine Hemoglobin NEG, Urine Glucose NEG 04/13/16 1653: Anion Gap 9, Estimated GFR > 60, BUN/Creatinine Ratio 12.9, Glucose 102 H, Calcium 8.7, Total Bilirubin 0.9, AST 23, ALT 31, Alkaline Phosphatase 70, Total Protein 7.1, Albumin 3.5, Globulin 3.6, Albumin/Globulin Ratio 1.0 L, PT 12.1, INR 1.15, APTT 32, CBC w Diff NO MAN DIFF REQ, RBC 4.44, MCV 87.8, MCH 28.8, RDW 13.6, MPV 9.3, Gran % 74.3, Lymphocytes % 16.4 L, Monocytes % 7.9, Eosinophils % 1.0, Basophils % 0.4, Absolute Granulocytes 5.6, Absolute Lymphocytes 1.2, Absolute Monocytes 0.6, Absolute Eosinophils 0.1, Absolute Basophils 0, PUBS MCHC 32.8 L Microbiology 04/14 0105 URINE ROUT: Urine Culture - RECD Orders ECHO Findings: Normal left ventricular EF visually estimated at >60 Abnormal relaxation filling pattern of the left ventricle for age (stage 1 diastolic dysfunction). Mild left atrial dilatation. Mild thickening/calcification of the anterior mitral valve leaflet. Mild thickening/calcification of the posterior mitral valve leaflet. Mild to moderate mitral annular calcification. Diffuse thickening of the aortic valve cusps with mildly reduced excursion. Mild aortic stenosis. Right ventricular systolic pressure estimated to be elevated at 40 mmHg. Radiology Findings: comminuted oblique fracture to the distal right femoral shaft. Alignment is adequate. There is diffuse soft tissue swelling. A right hip prosthesis is intact without failure or migration. Assessment/Plan Assessment: 89 YO F with a pmh of demenita, hypertensioin, hyperlipidemia, osteoarthritis presents from her nursing facility after sustaining a fall that resulted in a femoral fracture. She has been admitted for co-mangement of her fracture. RCRI 0.9% risk for adverse outcome with surgical procedure. Last ECHO done 2010, Overall risks vs benefits discussed with son ANDREA Hebert who wishes to have his mom have ORIF procedure. He is in [place] and would be coming to [place] to see his mom. She will need careful painmangement, ie control her pain wihout oversedation, resulting in constipation. After surgical procedure discuss with orthopod regarding dvt ppx Problem List: 1. Right femoral shaft fracture Pain Ratin Pain Location: right femoral diaphyseal fracture with displacement and angulation Pain Goal: Pain 4 or less Pain Plan: continue pain medications Tomorrow's Labs & Rationales: cbc, coags DVT/Prophylaxis: place on dvt ppx after surgical procedure, if surgery agrees. Consulting Request: Consulting Specialty: Orthopedics BRET BEASLEY,IVETT 04/14/16 1146: Attending MD Review Statement Attending Statement Attending MD Statement: discuss w/resident/PA/ASPHALT DISTRIBUTOR OPERATOR, agreed w/resident/PA/ASPHALT DISTRIBUTOR OPERATOR, reviewed EMR data (avail) Attending Assessment/Plan: Patient has been afebrile and her vital signs are stable. Labs from yesterday were stable as well. Neck no new events were noted. X-rays were reviewed which shows distal right femoral fracture which is comminuted. Patient going over to OR today for internal fixation. Assessment * Fall with right femur comminuted fracture * History of dementia * Status post hysterectomy and cholecystectomy Plan * Patient to go [facility] for fixation of right femur fracture * Continue pain management postop
[2016-04-14 08:07] VITALS: BP 134/60
--- NOTE | 2016-04-14 22:55 | RADIOLOGY REPORT ---
EXAMINATION: XR PORTABLE CHEST CLINICAL INFORMATION: Central line placement COMPARISON: Previous day's exam TECHNIQUE: Portable 10:38 PM view of the chest was obtained. FINDINGS: Right-sided jugular central line with its tip overlying the SVC. No pneumothorax. No other change. Slight coarsening of lung markings diffusely stable. Heart size mildly enlarged. No CHF. IMPRESSION: Satisfactory placement of central line. No pneumothorax.
--- NOTE | 2016-04-14 23:14 | RADIOLOGY REPORT ---
EXAMINATION: XR FEMUR, RIGHT CLINICAL INFORMATION: Right femur fracture. COMPARISON: 04/14/2016 TECHNIQUE: Intraoperative fluoroscopic imaging of the right femur was performed. 103 total images. 2 views. FINDINGS: The submitted images demonstrate the right hip arthroplasty hardware in the proximal femur. The comminuted distal femoral fracture is noted. Subsequent images demonstrate manipulation of the fracture fragments with placement of lateral plate and screw fixation hardware. Cerclage wires are also placed across the fracture and plate. IMPRESSION: Intraoperative fluoroscopic guidance for internal fixation of the comminuted right femoral fracture.
[2016-04-15] VITALS: BP 117/49
[2016-04-15 00:49] LABS: ABSOLUTE BASOPHIL COUNT 0 /CUMM (0.0-0.2); ABSOLUTE EOSINOPHIL COUNT 0 /CUMM (0.0-0.7); ABSOLUTE GRANULOCYTE CT 9.7 /CUMM (1.4-6.5); ABSOLUTE LYMPH COUNT 0.8 /CUMM (1.2-3.4); ABSOLUTE MONOCYTE COUNT 0.8 /CUMM (0.10-0.60); BASOPHIL % 0.1 % (0.0-2.0); EOSINOPHIL % 0.1 % (0-5); GRANULOCYTE % 86.1 % (42.2-75.2); HEMATOCRIT 37.5 % (37-47); MEAN CORPUSCULAR HGB 29.1 PG (27.0-31.0); MEAN CORPUSCULAR HGB CONC 33.7 G/DL (33.0-37.0); MEAN CORPUSCULAR VOLUME 86.3 FL (81.0-99.0); MEAN PLATELET VOLUME 10.4 FL (7.4-10.4); RBC DISTRIBUTION WIDTH 14.3 % (11.5-14.5); RED BLOOD CELL CT 4.34 /CUMM (4.20-5.40)
[2016-04-15 01:15] LABS: WHITE BLOOD CELL COUNT 11.3 /CUMM (4.8-10.8)
[2016-04-15 01:16] LABS: PLATELET COUNT 73 /CUMM (130-400)
[2016-04-15 04:58] LABS: ABSOLUTE BASOPHIL COUNT 0 /CUMM (0.0-0.2); ABSOLUTE EOSINOPHIL COUNT 0 /CUMM (0.0-0.7); ABSOLUTE GRANULOCYTE CT 8.1 /CUMM (1.4-6.5); ABSOLUTE LYMPH COUNT 0.7 /CUMM (1.2-3.4); ABSOLUTE MONOCYTE COUNT 0.6 /CUMM (0.10-0.60); BASOPHIL % 0.1 % (0.0-2.0); EOSINOPHIL % 0 % (0-5); GRANULOCYTE % 85.7 % (42.2-75.2); HEMATOCRIT 34.6 % (37-47); MEAN CORPUSCULAR HGB CONC 33.9 G/DL (33.0-37.0); MEAN CORPUSCULAR VOLUME 85.6 FL (81.0-99.0); MEAN PLATELET VOLUME 9.9 FL (7.4-10.4); PLATELET COUNT 71 /CUMM (130-400); RBC DISTRIBUTION WIDTH 14.2 % (11.5-14.5); RED BLOOD CELL CT 4.04 /CUMM (4.20-5.40)
[2016-04-15 05:03] LABS: PT 14.1 SEC (9.4-12.5)
--- NOTE | 2016-04-15 05:23 | PN- Orthopedic ---
See Addendum Subjective Subjective: POD #1 s/p ORIF right lower extremity for a comminuted periprosthetic hip fracture. EBL close to 1500ml, receiving 4u prbc intraoperatively for acute blood loss anemia. Sharmila removed from left wrist overnight when patient's left hand was noticably dusky and pale, although had palpable radial and ulnar pulse. Patient resting comfortably in bed currently. No complaints at present. Denies CP/SOB, N/V, F/C. Voiding via krishna catheter. Objective Vital Signs and I&Os Vital Signs Date Time Temp Pulse Resp B/P Pulse O2 O2 Flow FiO2 Ox Delivery Rate 02/05 0000 95 Nasal 3.0L Cannula 02/ 0000 97.2 70 20 117/49 95 Nasal 3.0L Cannula / 0807 98.1 87 20 134/60 99 Nasal 2.5L Cannula 02/ 0800 96 Nasal 2.0L Cannula Intake & Output 02/05 0800 02/ 0000 02/ 1600 02/ 0800 02/ 0000 02/ 1600 Intake Total 300 0 Output Total 100 450 Balance 200 -450 0 Intake, IV 300 Intake, Oral 0 0 Output, Urine 100 450 Patient 160 lb 160 lb Weight Physical Exam: Gen: AAOx1 in NAD Cor: S1+S2+ Reg rate and rhythm Lungs: CTA faustina Abd: soft, NT, ND, +BS x4 Ext: right hip dressing C/D/I. Thigh compartments soft. Calf compartment soft. Palpable DP/PT pulse. Foot warm. Sensation grossly intact. Assessment/Plan Assessment/Plan A: 89 year old female [place] resident with dementia now POD #1 s/p ORIF right hip d/ t a periprosthetic hip fracture. AVSS, but oliguric at this point and CVP noted to be around 1-2. Plan: F/U morning labwork. Would bolus with 1L NS, patient appearing dry. Patient NWB to right leg. PT/OT ordered for passive ROM beginning today. HSQ ordered for DVT prophylaxis- being held currently due to thrombocytopenia- likely in setting of blood transfusion. Dressing change on POD #2. Continue pain control with narcotics. Continue colace, senna, miralax for aggressive bowel regimen. Care per primary team. Core Measures/Miscellaneous Venous Thromboembolism VTE Risk Factors: Age > 40, Immobility, paresis, Surgery VTE Contraindications: No Contraindications VTE Prophylaxis Ordered Inpt: Mechanical (ALPS/TEDS) VTE Diagnosis: No VTE Type: NONE VTE Confirmed by (Test): NONE Beta Christy Is Beta Christy a Home Med? No Antibiotics Is Patient on Antibiotics? Yes If Yes: prophylaxis
[2016-04-15 05:49] LABS: WHITE BLOOD CELL COUNT 9.4 /CUMM (4.8-10.8)
--- NOTE | 2016-04-15 07:42 | NUR ---
SHIFT NOTE: 231 2/4 DROWSY BUT AROUSABLE PATIENT RECEIVED INTO CRCU 106 FROM PACU VIA STRETCHER, SKIN PINK, WARM AND DRY, PATIENT CARE SINUS ARRYTHYMIA WITH OCCASIONAL PAC'S NOTED, HEART RATE 60'S/MIN, SBP INITIALLY 140'S/, RIJ TLC INTACT- CVP 4, O2 VIA NC AT 3L/MIN- CONTINUOUS O2 SAT 94 TO 95%, BREATHE SOUNDS CLEAR BUT DIMINISHED, ABDOMEN SOFT, + BS, RLE DRESSING CLEAN, DRY AND INTACT, RIGHT FOOT PINK, PALPABLE PEDAL PULSES, ABLE TO MOVE TOES BILATERALLY- ALPS PLACED, LEFT RADIAL ANDERS INTACT- GOOD ARTERIAL WAVEFORM, QUARTER-SIZE BRUISE NOTED MID-BACK, LEFT BUTTOCK RED BUT BLANCHABLE- SIZEWISE MATTRESS ORDERED 2344 LEFT HAND VERY PALE, FINGERS APPEAR WAXY, GOOD RADIAL AND ULNAR PULSES- DR COATES MADE AWARE AND IN AT BEDSIDE, KEVIN KEARNS NOTIFIED- ARTERIAL CATHETER REMOVED ORDERED- 10 MINUTE DIRECT PRESSURE TO SITE FOLLOWED BY PRESSURE DRESSING 0100 DR COATES MADE AWARE OF CONTINUED POOR UO, CVP 3- PATIENT TO RECEIVE 500 ML NS IV BOLUS, LEFT HAND WARMER, FINGER PADS DUSKY 0300 CVP 2 -GRIS COATES AND TIMO MADE AWARE, UO CONTINUES 20 ML/HR, LEFT HAND HAS MORE COLOR AT THIS TIME, NO LONGER DUSKY, WARMER TO TOUCH, EASILY PALPABLE PULSES REMAIN 0500 CVP 1, UO REMAINS LOW- PATIENT TO RECEIVE 1 LITER NS WHEN ORDERED PATIENT SEEN AND EXAMINED BY KEVIN KEARNS- RLE DRESSING REMAINS CLEAN, DRY AND INTACT, PALPABLE PEDAL PULSES 0545 TYLENOL DOSE IV FOR POST-OP PAIN PRIOR TO TURNING 0630 LEFT HAND PALER THAN LEFT BUT MUCH IMPROVED FROM EARLIER, UO IMPROVED, CVP AT 3, PATIENT BRIGHTER, SINGLE WORD RESPONSES, ABLE TO FOLLOW SIMPLE COMMANDS, CAN WIGGLE TOES ON BOTH FEET, O2 TITRATED TO 2L/MIN- SAT 97%, AWAITING AM MD ROUNDS
[2016-04-15 08:00] VITALS: BP 122/70
--- NOTE | 2016-04-15 11:44 | RADIOLOGY REPORT ---
EXAMINATION: XR PORTABLE CHEST CLINICAL INFORMATION: Central line pulled out. COMPARISON: Recent priors. TECHNIQUE: Portable portable AP 75 degrees erect chest. view of the chest was obtained. FINDINGS: The right IJ CVL has been removed. No pneumothorax or pleural effusion is seen. Mediastinal contours remain normal. There is mild patchy opacity at both bases consistent with atelectasis. Early pneumonia is not excluded. IMPRESSION: Mild bibasilar patchy opacity consistent with atelectasis. Developing pneumonia is not excluded. Otherwise stable appearance of the chest status post removal of right IJ CVL.
--- NOTE | 2016-04-15 12:19 | PN- Att Addend ---
Attending Addendum Attending Brief Note Patient seen and examined. Plan of care discussed with the medical team and the patient. Available lab work and radiology test reports were reviewed. Patient is status post internal fixation of her femur fracture. She was moved to ICU because of excessive bleeding. Overnight she was given transfusion. This morning she is awake but lethargic. Her pain is well-controlled. She denies any fever nausea vomiting or chills. Vital Signs Date Time Temp Pulse Resp B/P Pulse O2 O2 Flow FiO2 Ox Delivery Rate 04/15 799 97 Nasal 3.0L Cannula 04/15 799 98.9 75 16 122/70 97 Nasal 3.0L Cannula 04/15 0620 95 Nasal 2.0L Cannula 04/15 0400 99 Nasal 3.0L Cannula 04/15 0000 95 Nasal 3.0L Cannula 04/15 0000 97.2 70 20 117/49 95 Nasal 3.0L Cannula Intake & Output 04/15 1600 04/15 0800 04/15 0000 Intake Total 1666 Output Total 175 Balance 1491 Intake, IV 1666 Number 0 Bowel Movements Output, Urine 175 Exam: General: Patient awake slightly lethargic and oriented without any distress CVS: S1 plus S2 without any murmur or gallops Chest: Few scattered crepitation without any wheeze. There is no respiratory distress. Abdomen: Soft nontender, bowel sound present, no guarding or rebound DRUG ABUSE WORKER: Awake alert oriented without any focal neuro deficit and follows command appropriately Extremities: No edema; no clubbing or cyanosis noted; right leg does not show signs of any bleeding. Surgical dressings in place. Laboratory Tests 04/15 04/15 06 0435 Chemistry Sodium (137 - 145 mmol/L) 134 L Potassium (3.5 - 5.1 mmol/L) 4.5 Chloride (98 - 107 mmol/L) 103 Carbon Dioxide (22 - 30 mmol/L) 27 Anion Gap (5 - 16) 4 L BUN (7 - 17 mg/dL) 10 Creatinine (0.5 - 1.0 mg/dL) 0.6 Estimated GFR (>60 ml/min) > 60 Glucose (65 - 99 mg/dL) 164 H Calcium (8.4 - 10.2 mg/dL) 6.7 L Phosphorus (2.5 - 4.5 mg/dL) Cancelled 3.2 Magnesium (1.6 - 2.3 mg/dL) Cancelled 1.9 Total Bilirubin (0.2 - 1.3 mg/dL) 1.1 AST (14 - 36 U/L) 33 ALT (9 - 52 U/L) 31 Albumin (3.5 - 5.0 g/dL) 1.9 L Coagulation PT (9.4 - 12.5 SEC) 14.1 H INR (0.90 - 1.19) 1.35 H Hematology CBC w Diff Cancelled NO MAN DIFF REQ WBC (4.8 - 10.8 /CUMM) Cancelled 9.4 RBC (4.20 - 5.40 /CUMM) Cancelled 4.04 L Hgb (12.0 - 16.0 G/DL) Cancelled 11.7 L Hct (37 - 47 %) Cancelled 34.6 L MCV (81.0 - 99.0 FL) Cancelled 85.6 MCH (27.0 - 31.0 PG) Cancelled 29.0 RDW (11.5 - 14.5 %) Cancelled 14.2 Plt Count (130 - 400 /CUMM) Cancelled 71 L MPV (7.4 - 10.4 FL) Cancelled 9.9 Gran % (42.2 - 75.2 %) 85.7 H Lymphocytes % (20.5 - 51.1 %) 7.8 L Monocytes % (1.7 - 9.3 %) 6.4 Eosinophils % (0 - 5 %) 0 Basophils % (0.0 - 2.0 %) 0.1 Absolute Granulocytes (1.4 - 6.5 /CUMM) 8.1 H Absolute Lymphocytes (1.2 - 3.4 /CUMM) 0.7 L Absolute Monocytes (0.10 - 0.60 /CUMM) 0.6 Absolute Eosinophils (0.0 - 0.7 /CUMM) 0 Absolute Basophils (0.0 - 0.2 /CUMM) 0 PUBS MCHC (33.0 - 37.0 G/DL) Cancelled 33.9 04/14 2345 Chemistry Sodium (137 - 145 mmol/L) 133 L Potassium (3.5 - 5.1 mmol/L) 4.6 Chloride (98 - 107 mmol/L) 104 Carbon Dioxide (22 - 30 mmol/L) 25 Anion Gap (5 - 16) 3 L BUN (7 - 17 mg/dL) 10 Creatinine (0.5 - 1.0 mg/dL) 0.6 Estimated GFR (>60 ml/min) > 60 BUN/Creatinine Ratio (7 - 25 %) 16.7 Phosphorus (2.5 - 4.5 mg/dL) 4.0 Magnesium (1.6 - 2.3 mg/dL) 1.4 L Hematology CBC w Diff NO MAN DIFF REQ WBC (4.8 - 10.8 /CUMM) 11.3 H RBC (4.20 - 5.40 /CUMM) 4.34 Hgb (12.0 - 16.0 G/DL) 12.6 Hct (37 - 47 %) 37.5 MCV (81.0 - 99.0 FL) 86.3 MCH (27.0 - 31.0 PG) 29.1 RDW (11.5 - 14.5 %) 14.3 Plt Count (130 - 400 /CUMM) 73 L MPV (7.4 - 10.4 FL) 10.4 Gran % (42.2 - 75.2 %) 86.1 H Lymphocytes % (20.5 - 51.1 %) 7.0 L Monocytes % (1.7 - 9.3 %) 6.7 Eosinophils % (0 - 5 %) 0.1 Basophils % (0.0 - 2.0 %) 0.1 Absolute Granulocytes (1.4 - 6.5 /CUMM) 9.7 H Absolute Lymphocytes (1.2 - 3.4 /CUMM) 0.8 L Absolute Monocytes (0.10 - 0.60 /CUMM) 0.8 H Absolute Eosinophils (0.0 - 0.7 /CUMM) 0 Absolute Basophils (0.0 - 0.2 /CUMM) 0 PUBS MCHC (33.0 - 37.0 G/DL) 33.7 Assessment * Fall with right femur comminuted fracture * History of dementia * Status post hysterectomy and cholecystectomy * Intraoperative bleeding * Anemia of acute blood loss * Mild hyponatremia * Hypocalcemia of unclear significance likely due to multiple transfusions Plan * The patient remains stable she can be moved out of ICU to go to general medical floor * Continue pain management postop * Recheck calcium level later today * Recheck CBC tomorrow
--- NOTE | 2016-04-15 16:15 | Operative Report ---
Operative/Inv Procedure Report Surgery Date: 04/14/16 Name of Procedure: 1) Open Reduction And Bridging Internal Condylar Jhlex-Ohypz-Yxrdf Fixation Of Right Periprosthetic Segmental Comminuted Closed Displaced Midshaft Femoral Fracture 2) Open Reduction And Bridging Internal Condylar Ogghg-Fgeir-Gxsgl Fixation Of Right Segmental Comminuted Closed Displaced Supracondylar Femoral Fracture Without Intercondylar Extension Pre-Operative Diagnosis: 1) Right Periprosthetic Segmental Comminuted Angulated Displaced Closed Short Oblique Midshaft Femur Fracture 2) Right Segmental Comminuted Angulated Displaced Closed Short Oblique Supracondylar Distal Femur Fracture Without Intercondylar Extension 3) 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 Refer to anesthesia records for details. Surgeon/Regional Extension Service Specialist: SRAVANTHI VEGA MD - Primary Consulting Orthopaedic Surgeon Surgical Providers: Sravanthi Vega M.D. - Primary Operating Orthopaedic Surgeon Alfredo Dos Santos PA-C - Restaurant Inspector Alfredo Dos Santos PA-C assisted throughout each critical phase of the procedure. The assistance of a specialty trained surgical physician land surveyor assistant was critical for safe completion of all phases of the procedure, particularly for maintenance of clear visualization in the operative field and for protected soft tissue retraction where necessary. Anesthesia: laryngeal mask airway, Spinal Anesthesia TIVA Refer to anesthesia service documentation for details Monitors: Standard perioperative monitoring per anesthesia. Refer to anesthesia records for details. IV Fluids: Standard anesthesia fluid management without requirement for additional or emergent fluid resuscitation. Refer to anesthesia records for details. Implants: Instrumentation Implants: [employer] AxSOS 3 Titanium 5.0mm Distal Lateral Femur ORIF System: Distal Lateral Condylar Femoral Locking Plate: 16 hole (343 mm length) Right-Sided Plate Distal Lateral Femoral Condylar Screws (Distal To Proximal): Distal Condylar Row: 2 x 80 mm - 5.0 mm Locking Narrow Cortical Thread Pitch Screws Middle Condylar Row: Anterior Non-Threaded Hole Of Middle Condylar Row: 1 x 75 mm - 6.0 mm Non-Locking Full Cancellous Thread Pitch Screw Middle And Posterior Threaded Holes Of Middle Condylar Row: 2 x 80 mm - 5.0 mm Locking Narrow Cortical Thread Pitch Screws Proximal Condylar Row: 2 x 75 mm - 5.0 mm Locking Narrow Cortical Thread Pitch Screws Distal Femoral Shaft Screws Below Fracture (Distal To Proximal): 1 x 48 mm - 4.5 mm Non-Locking Standard Cortical Thread Pitch Screw 1 x 44 mm - 5.0 mm Locking Narrow Cortical Thread Pitch Screw 1 x 44 mm - 4.5 mm Non-Locking Standard Cortical Thread Pitch Screw Proximal Femoral Shaft Screws Above Fracture And Below Prosthesis ( Distal To Proximal): 1 x 28 mm - 5.0 mm Locking Narrow Cortical Thread Pitch Screw 3 x 38 mm - 5.0 mm Locking Narrow Cortical Thread Pitch Screws Proximal Femoral Shaft Periprosthetic Screws (Distal To Proximal): 1 x 10 mm - 5.0 mm Locking Narrow Cortical Thread Pitch Periprosthetic Screw 1 x 8 mm - 5.0 mm Locking Narrow Cortical Thread Pitch Periprosthetic Screw 1 x 14 mm - 5.0 mm Locking Narrow Cortical Thread Pitch Periprosthetic Screw 2 x 12 mm - 5.0 mm Locking Narrow Cortical Thread Pitch Periprosthetic Screws 1 x 14 mm - 5.0 mm Locking Narrow Cortical Thread Pitch Periprosthetic Screw [employer] Beaded Cable And Sleeve Sets (Distal To Proximal): Dall-Miles Cables Distal To Fracture In Supracondylar Region: 3 x 2.0 mm [employer] Dall-M[employer] Beaded Cable And Sleeve Sets Dall-Miles Cables Proximal To Fracture In Periprosthetic Region: 5 x 2.0 mm [employer] Dall-[employer]iles Beaded Cable And Sleeve Sets Graft Implants: Graft At Fracture Site Filling Small Fracture Gap: [employer] BB Trauma Urine Output: Refer to anesthesia records for details. Drains: None Specimens: None Complications: None Condition: Initial Preoperative Condition: The patients condition was stable to the operating room without significant vital sign, hemodynamic, cardiopulmonary or other organ system abnormality and without evidence of distal lower extremity neurovascular or musculoskeletal deficit as documented in orthopaedic consult report given the limitations of preoperative evaluation due to the patients severe underlying dementia and mild to moderate sedation required for pain control. There was no significant swelling or cutaneous tissue compromise evident above or below the splint, no fracture region pain at rest or to gentle palpation through the splint, and no pain with passive distal extremity motion to suggest the development of an urgent or emergent condition related to deep soft tissue swelling. The patient was noticeably congested preoperatively. The patient had been cleared as optimized for surgical intervention by medicine, all requested consulting services and the anesthesia service prior to surgery. There was no adverse change evident in the patients condition between the medicine, anesthesia and orthopaedic clearance evaluations and the immediate preoperative assessment. Intraoperative Condition: The patient was stable throughout the procedure without cardiopulmonary or other organ system instability or abnormality but did have monitoring changes and vital sign lability requiring continuous modulation of anesthesia care and intermittent pressor support. The lability described above, the extent and duration of the procedure and the surgical blood loss necessitated that the patient be converted from spinal only to spinal with LMA and TIVA anesthesia during the procedure. The patient was therefore recommended by anesthesia for ICU observation postoperatively. See the intraoperative anesthesia records for details. Final Postoperative Condition: The patient was extubated in the operating room and transferred in stable condition to the recovery room with no new deficit or change compared to normal preoperative neurological and stable preoperative musculoskeletal status evident on limited evaluation during initial recovery from anesthesia. The patient demonstrated grossly normal spontaneous motion and later was able to demonstrate normal distal motion and function to command in all extremities once fully awake upon early recovery from anesthesia. She tolerated gentle, supported, short arc lower extremity (hip, knee, ankle and foot) motion even without an external splint present. There was no significant swelling evident anywhere in the calf and her tissues were soft to palpation with only mild pain consistent with her early postoperative status. There was no pain with active and passive distal extremity motion and there was no postoperative suggestion of the development of an urgent or emergent condition related to deep soft tissue swelling or vascular compromise. Because of the extent of her procedure and her intraoperative lability a triple lumen central line will be placed and she will be observed in the ICU until she is sufficiently stable for transfer to the floor. Once she is stable on the floor then discharge arrangements can commence for nursing facility transfer. Operative Indication: Thu Stockton is an 89 year old demented white female S/P right hip cemented hemiarthroplasty for fracture (06/21/2010, [place]) who was brought to the [facility] Emergency Room by ambulance from [facility] on 05/2016 for right thigh pain, deformity and inability to bear weight following an unwitnessed fall presumably from a standing height with likely longitudinal impact on the right knee and was found to have a periprosthetic, comminuted, segmental, closed, displaced, midshaft to supracondylar femur fracture. The fracture started just below the hip hemiarthroplasty prosthesis which appeared well fixed without evidence of disruption of or fracture into the cement mantle or fixation region of the prosthesis. Her presumed mechanism of injury generally correlates with the laterality, location, and severity of her symptoms as well as the findings on examination and radiologic studies. The severity of this fracture from what is usually considered a low energy mechanism is consistent with underlying age-related osteoporosis. She is a permanent nursing facility resident and was reportedly independently ambulatory prior to her fall although she may have been having some balance difficulties and lesser falls previously without compliance with use of ambulatory aide due to her dementia. The patient was admitted to medicine and orthopaedics was consulted. It was determined that, if the patient or her healthcare decision proxy consented to invasive treatment and if she could be medically cleared for the procedure, that surgical treatment (open reduction and internal fixation) would be the intervention most likely to optimize her long-term function and minimize her cumulative pain, even taking into account the significant risks of surgery. Her son (Bebo Stockton) is a nurse in [place], [place] and has been legally designated as her guardian and healthcare decision proxy. He was contacted and the relative potential benefits and risks of all viable and reasonable available treatment options were discussed. After appropriate consideration he elected to have his mother be considered for surgical intervention and so the primary admitting medical team proceeded with preoperative clearance assessment. The patient was ultimately cleared as high risk for surgery with a likely functional outcome in the low to intermediate range even with optimal surgical fracture repair and perioperative course. Unfortunately, her projected risk for nonoperative treatment was felt to be even higher as was her estimated degree of pain while her overall functional outcome was felt to be very low without surgery. All of these estimates (as well as their high variability) were discussed in detail with her son who very reasonably decided to have her proceed with surgery. Treatment options were discussed in detail directly with the patient and her son who serves as her legal conservator. He lives in [place], [place] and, as of the time of surgery, was still in the process of making arrangements to travel here to assist in his mothers care. He was contacted by phone to discuss his mothers condition and obtain consent. After appropriate consideration of all reasonable treatment options, he elected to proceed with the best available operative procedure of open reduction and internal plate- screw-cable construct fixation of distal femur periprosthetic fracture as well as any indicated procedure based on intraoperative findings including potential bone grafting and/or revision of arthroplasty if necessary. The patients son understands and accepts that the primary indication for surgery is long-term pain control and that partial functional recovery (although not back to preinjury level) may also be achieved with acceptable relative risk but that surgery also has significant limitations and variability of outcome even with optimal surgical results which are never guaranteed. He accepts these eventualities and limitations and appears to have appropriate goals for outcome thus making his mother a reasonable candidate for the planned procedure. Her son also clearly understood and accepted the increased risks associated with possible noncompliance regarding weight-bearing restrictions due to her dementia. The patient has been designated as Do Not Resuscitate status by her son. We discussed and he agreed to limited resuscitation options intraoperatively and during the immediate perioperative period at the discretion of the primary orthopaedic surgery and party demonstrator physicians. Specific risks of the planned procedure were reviewed in detail with the patients son and then, in addition, inclusive general categories of risk with examples of each category were presented. He understood and accepted that the risks of the procedure included but were not limited to those mentioned, that review of all potential procedural risks is impossible, and that any risk not specifically reviewed is included in the categories of risk presented. In addition to the general risks of all surgical procedures (bleeding, infection, anesthesia and other general risks), specific risks of the planned procedure were discussed including but not limited to tissue injury or exacerbation of prior injury (nerve, blood vessel, bone, muscle, tendon, ligament, joint, or other tissue structures), medical complications (blood clots, cardiac events, stroke, acute organ failure of any organ), mechanical complications (new fracture or progression of fracture of bone, displacement of bone, fracture or loosening of implants, failure of bone healing, failure of soft tissue healing), new or exacerbated, immediate or long-term symptoms (persistence or worsening of pain, dysesthesias, paresthesias, headaches, dizziness), development of new or worsening of preexisting conditions or complications (heterotopic or ectopic bone formation, arthritis, blood clots, cardiac events, stroke, acute organ failure of any organ, other medical conditions worsened by trauma, anesthesia or immobility), and need for reoperation at the current or a future related site. The potential need for acute or later arthroplasty revision was discussed. Potential for partial or complete, global or regional loss of motor, sensory, coordination, bladder, bowel or ambulatory function related to the injury, anesthesia or surgery was reviewed. The potential for worsened dementia was discussed and accepted. Remaining potential complications were reviewed in inclusive risk categories ranging through all severity levels from temporary and mild changes to catastrophic outcomes such as complete paralysis and . The patients son understood and accepted that his mothers risk was somewhat above average even for this extensive and already high risk procedure due to her age, the severity of her fracture, the limitation of fixation associated with the presence of a cemented proximal arthroplasty and her multiple medical conditions including osteoporosis, dementia and other diagnoses. Operative phone consent was obtained from the patients son and witnessed per hospital protocol with documentation of good understanding of all alternatives, indications, goals, expectations, limitations, risks and benefits of the planned procedure. The son consented for the procedure to be performed by Dr. Vega and his designated hospital and practice team. The patient was cleared as optimized for surgery by the admitting medical and all requested consulting specialists prior to being transported to the preoperative holding area for final anesthesia and surgical clearance. Operative/Procedure Note Note: Preoperative Holding Area Assessment/Preparation: The patient was evaluated in the preoperative holding area prior to surgery and no clinical changes or contraindications to surgical intervention were documented compared to the preoperative clearance evaluations. Preoperative paperwork was finalized. The surgeon and operating staff confirmed the patient identity, surgical procedure, and operative site as well as other clinical details in an initial documented preoperative confirmation ("awake time out") prior to anesthesia. This information could not be confirmed directly by the patient due to her severe dementia but consistency of data was confirmed among sources and providers throughout this preoperative process. The region of the intended surgical site was marked per protocol. The immediate surgical site was later cleansed and prepped per protocol after anesthetic administration and splint removal. Operative Procedure: The procedure was performed by Dr. Vega who was present and served as the primary surgeon for all critical intraoperative decisions and interventions. The assistance of a specialty trained surgical physician land surveyor assistant was critical for safe completion of all phases of the procedure, particularly for maintenance of clear visualization in the operative field and for protected soft tissue retraction. Set-Up/Positioning - The patient was brought to the operating room in stable condition and underwent uncomplicated spinal anesthesia, sedation and placement of all appropriate monitors, lines and catheters without difficulty. Later during the case an LMA airway was placed for assisted mechanical ventilation. Administration of 2 grams of IV Ancef determined by patient body mass and appropriate for perioperative prophylaxis was completed at least 30 minutes prior to making an incision. Antibiotics were repeated intraoperatively four hours after incision. The patient was positioned supine on the operating traction table in standard fashion for a femoral shaft fracture ORIF taking care to protect and stabilize the right lower extremity and fracture region during transfer. The pelvis was stabilized against the perineal post. The right foot was well padded and secured in the traction boot. The left leg was kept in the resting supine position on the lower leg support section which was kept in place throughout the procedure. Traction was applied to the right lower extremity through the traction apparatus and boot until the thigh was adequately aligned across the normal traction table gap between the pelvic and lower leg support sections. The lower leg support was left in place for this procedure so as to support the opposite left lower extremity in the resting supine position, minimize apex posterior angulation of the right femoral fracture and minimize the amount of traction necessary to optimally align the fracture across the table gap. Normal pulses and capillary refill were confirmed in both distal lower extremities prior to prep and drape. The left arm was abducted on an arm board with the right arm adducted across the torso over a pillow and secured in place with taped wraps taking care to avoid positions of nerve stretch and pad all pressure points. The surgeon and operating room staff documented the patient identity, surgical procedure, and operative site in a final confirmation (final time out ) prior to beginning the procedure. Prior to prep and drape the fracture was documented to be reducible and adequately aligned on AP and Lateral C-arm fluoroscopic views. Exposure - Sterile prep and drape was performed using standard technique. In this case, because the traction table was being used with the operative leg in traction and the opposite leg flat but requiring intermittent elevation for fluoroscopic imaging, a special draping technique was used. The traction apparatus was used to elevate the operative leg off of the lower leg support section of the table sufficient to allow circumferential prep of the right leg from hip and inguinal region to just below the knee. The left leg was then elevated and draped with a rolled impervious circumferential stocking extremity drape wrapped with sterile Coban so that it could be sterilely and independently elevated and flexed during surgery to allow fluoroscopic lateral visualization of the operative right femur from hip to knee as necessary. With the left leg maintained elevated and sterilely wrapped as noted above, a half sheet was placed over the lower leg support section of the table and under both elevated legs to provide a sterile base for further draping. An adhesive-edged plastic blue U-drape (plastic split sheet) was wrapped around the operative leg just below the knee and unfolded toward the foot to provide circumferential sterile covering of the right lower leg and the traction apparatus. An extremity sheet was then placed over the left leg up to the hip level and this sheet was unfolded such that the superior portion extended upward over the perineal post, both inguinal regions and the torso with the inferior portion extending over the lower leg support platform and underneath both legs. The sterilely wrapped left leg was confirmed to be free to elevate and flex as needed for optimal full-length fluoroscopic imaging of the right femur and was then placed in the normal resting supine position on the sterilely covered lower leg section of the traction table. An additional standard adhesive-edge split sheet was placed just proximal to and overlying the plastic U-drape covering the right lower leg from just below the knee and extending over the traction apparatus as an extra layer of distal protection. Finally, two standard adhesive-edge split sheets (one opening posteriorly and one opening anteriorly) were applied at the proximal thigh just below the inguinal region medially and just above the iliac crest anteriorly and laterally well below the uppermost prep level. Once the drapes were in place with the thigh circumferential sterile field established, the traction apparatus was lowered until the right lower leg was in contact with the lower leg support pad of the traction table taking care to avoid any concentration of pressure on the posterior calf while allowing adequate support so as to minimize recurvatum at the fracture site and minimize the need for additional traction (other than for alignment) to support the thigh. With all of the goals achieved for draping this operative field, the C-arm was sterilely draped and brought in for initial operative images. The distal end of the patients total hip arthroplasty incision was marked with a sterile surgical marking pen. Using a combination of palpation localization and radiopaque markers projected on fluoroscopic AP and lateral images over critical structures, additional reference markings were made on the skin overlying the distal end of the arthroplasty implant, the distal end of the cement mantle, the flare of the greater trochanter, the inferior margin of the lesser trochanter, the fracture site, the distal femoral flare, the lateral condyle, the intercondylar notch, the knee joint line and the margins of the patella. A linear incision was then made longitudinally from distal to proximal along the lateral mid-axis of the femur for a length of approximately 40 cm using a #10 scalpel blade curving slightly posteriorly at the proximal end to match (although it did not quite reach) the trajectory of the inferior end of the old hip arthroplasty incision. Hemostasis was achieved using Bovie electrocautery beginning with the cutaneous incision edges and continuing throughout the procedure where necessary. The incision was carried down through the subcutaneous layer and the tensor fascia was identified. This layer was divided with the Bovie distally at the level of the distal femoral flare and then extended proximally in line with the cutaneous incision using Mehta scissors in a sliding technique taking care to avoid disruption of the underlying vastus lateralis fascia in the process. With the tensor fascia opened and the vastus lateralis exposed, the dissection was carried posteriorly in the plane between the vastus muscle and the undersurface of the tensor fascia back to the level of the intermuscular septum at the posterolateral attachment to the femoral shaft. This dissection was performed both above and below the fracture level until the femoral attachment was reached at which point a subperiosteal dissection was carried anteriorly over the lateral and anterior surfaces of the femur. Gomez retractors were placed over the anterior femoral surface in this subperiosteal plane and the vastus muscle mass was then elevated and retracted anteriorly to expose the lateral femur. Dissection was then extended toward the fracture site taking care to preserve as much soft tissue envelope as possible. Of the comminuted segmented portion of the fracture, all fragments had preserved soft tissue envelope except for the more anterior of the segmental double butterfly fragments which appeared to have been stripped of soft tissue attachment even before dissection (as only its lateral edge was exposed surgically and yet its entire anterior surface was found to be void of soft tissue attachment upon muscle retraction). The fracture site was fully exposed and partially coagulated fracture hematoma was evacuated using suction, large curette and bulb irrigation. The exposure was extended distally to fully expose the lateral surface of the lateral femoral condyle. A 16-hole [place] AxSOS 3 Titanium distal lateral femoral plate was applied to the lateral surface of the femur extending from the lateral femoral condyle to the proximal flare of the greater trochanter bridging the segmental fracture gap and optimally restoring femoral alignment on both AP and lateral fluoroscopic images when the plate was approximated to both the proximal and distal segments using Clio clamps. Fluoroscopic images confirmed that the curvature of the distal plate adequately and optimally matched the flare of the distal femoral lateral condyle with the distal end of the plate at the level of the intercondylar notch so that the lowest screws would seat just above that level minimizing the risk of joint penetration. The lateral view also confirmed optimal central position of the plate within the condylar region and optimal alignment of the plate along the lateral cortex all the way to the proximal femoral region to insure that, once distal fixation was achieved in this position, that proximal fixation would restore near-anatomic femoral shaft alignment throughout the length of the construct and bridging the segmental fracture section. Fixation was first achieved distally through the condylar expansion of the distal end of the plate. Guidance towers were placed in the most distal holes of the plate and threaded guidepins were placed through these attachments crossing from lateral to medial condylar cortex and confirming on fluoroscopic views that the pins were in the lower portion of the condyles but several millimeters above the level of the intercondylar notch. The 7 screws within the expanded condylar portion of the lateral femoral plate were placed from distal row to proximal row and generally from posterior to anterior. All screws were placed using similar technique. The most anterior screw of the middle row in this region was placed using non-locking screw per its design. A cancellous thread screw was placed at this site. All other screws in this section were locked cortical thread screws. With the exception of the non-locking screw, a tower was fixed in the threaded hole and a threaded guidepin was advanced to the far condylar cortex. Optimal pin position and length were confirmed on fluoroscopic images and length was measured using subtraction technique with a free pin of equal length. Where available, the length measurement was confirmed using a slotted subtraction measurement ruler specially designed for the system or a direct measurement depth gauge. Screws were then placed taking care to match the trajectory specified by the threaded towers so as to optimize threaded locking of the screws to the plate. This provided excellent locked bicortical distal fixation even in this hypodense region of bone. Final optimal screw position, length and bicortical fixation were confirmed on orthogonal fluoroscopic images. With distal fixation achieved, attention was turned to the proximal region. Proximal cables were first applied to initiate fixation and maintain alignment while still allowing some ability to adjust length. A cable passer was used to perform circumferential subperiosteal dissections and pass Titanium cables spaced approximately 2 plate holes or 2-4 centimeters apart throughout the proximal section above the fracture. A total of 5 cables were placed in this region to optimize circumferential fixation in this region given that cortical screw fixation was limited due to the presence of the hemiarthroplasty stem. Once the cables were placed with fasteners properly aligned against the anterior femoral cortex and gently (but not yet maximally) tightened, the longitudinal leg traction was partially released until the fracture gap was minimized with adequate approximation of the primary proximal, distal and intervening segmental fragments. Optimal femoral and fracture alignment nondenominational was again confirmed on multiplanar fluoroscopic images and proximal screw fixation was achieved using unicortical periprosthetic locking screws placed using standard technique of drilling, measuring with a depth gauge and placing each screw with excellent locked unicortical fixation throughout the proximal portion of the plate. Bicortical locked screw fixation was achieved at two sites just below the level of the arthroplasty stem and through the cement mantle using standard technique. Two additional lower proximal bicortical locking screws were placed below the cement mantle and proximal to the fracture segment again using standard and identical technique to that described above. All screws demonstrated good insertional torque and final fixation. With the fracture optimally aligned, at optimal length and fixed both above and below the segmental fracture segment, the proximal cables were tightened maximally using a manual rotating cable tensioning device taking care to avoid overtightening beyond the fatigue point of either the cable or the bone. The cable fastener was compressed to provide interference fixation of the circumferential tensioned cable per its design. The free ends of each cable were cut close to the fastener using a side-cutting device designed for this purpose. After the five proximally placed cables were tensioned with optimal fixation, three additional distal cables were placed and tensioned using identical technique to that described above to provide supplemental distal fixation against pull-out failure of the screws. With the construct finalized the entire surgical site and particularly the fracture site and butterfly fragments were thoroughly irrigated with over a liter of Bacitracin irrigation using manual bulb lavage technique. Five cc of Vitoss putty was reconstituted per protocol on the back table and implanted at the fracture site with good fill and bridging of all remaining fracture gaps. Hemostasis was achieved using Bovie electrocautery and where necessary (from beneath the intermuscular septum in the fracture region) using gentle prolonged pressure packing. Optimal fracture and implant position and alignment was confirmed on orthogonal AP and lateral fluoroscopic images from the hip to the knee. These final images were uploaded to the [facility] PACS for documentation. Throughout the procedure the patients blood pressure and oxygenation had been labile and required LMA airway, ventilatory and pressor support. No extraordinary resuscitative measures were required at any time. The surgical and anesthesia teams agreed that the patient would benefit from central line placement and intensive care monitoring as well as probable fluid support and possible pressor support during the initial perioperative period. These measures were compatible with the perioperative Health Care Directives discussed with the patients guardian (son) prior to surgery. Closure - The surgical site was thoroughly irrigated with Bacitracin irrigation and hemostasis was carefully achieved. All initial counts were correct prior to commencing with closure. Good hemostasis without evidence of active bleeding was demonstrated at the end of the case and therefore it was not felt that any drain was necessary. The posterior edge of the vastus lateralis muscle and fascia was reapproximated to the medial portion of the intermuscular septum with #1 Vicryl suture using a standard running technique. The tensor fascia was then also closed with #1 Vicryl suture using a standard running technique reinforced with several interrupted figure-of-8 sutures. The deep subcutaneous levels were closed in a single layer with #2-0 Vicryl simple, inverted, interrupted sutures. The superficial subcutaneous level was closed with #3-0 Vicryl simple, inverted , interrupted sutures. The skin edges were everted and closed with kole. Xeroform was placed over the entire length of the surgical incision. The surgical site was dressed with loosely woven (fluff) sterile gauze and ABD pads held in place with Coverall. All final counts were correct prior to removing the drapes. The LMA was removed without difficulty by anesthesia while the patient was still on the operating table and she was then transferred to the hospital bed in the supine position taking care to support and protect the operative leg during transfer. Recovery Room Assessment: The patient was taken to the recovery room in stable condition. Her intraoperative lability had stabilized somewhat and so no additional perioperative resuscitation interventions were deemed necessary beyond those discussed above. A triple lumen central line was placed by the party demonstrator for any fluid and/or medication support measures consistent with the agreed-upon level of perioperative intervention discussed with the son preoperatively. The patient had begun to recover from spinal anesthesia and gross neurological examination showed no deficits on initial recovery from anesthesia. The patient will follow the usual postoperative protocol for open reduction and internal fvrnkoij-jmbyb-nglkc-cable fixation of periprosthetic, segmental midshaft and supracondylar femur fractures. This will include use of a knee immobilizer during any change of position and strict xgh-eejppv-errhqlm status until callus formation is documented on postoperative radiographs which will likely be after 4-6 weeks. In this patient, given her dementia, pivot wheelchair transfers on her left leg would be her maximum assisted level of mobilization and would only be considered if her right leg were supported with a knee immobilizer and assistants. She will not likely be independent in transfer function until 2-3 months postoperatively when she has demonstrated early osseous healing, weight-bearing without significant discomfort, progression with walker ambulation and physical therapy strengthening without risk of falling. Her son understood prior to surgery that she may never regain independent mobilization or ambulation after this injury and surgery even with optimal healing of her fracture. She will require inpatient rehabilitation until she can demonstrate early fracture healing and progression of weight-bearing tolerance. It will therefore likely be at least 6 weeks before any consideration can be made for returning her to her previous level of less supervised nursing facility residence status. Findings: Good femoral shaft, segmental fracture and distal condylar fixation with adequate fracture and overall lower extremity alignment given severity of injury. No disruption or loosening of any of the hip arthroplasty components or cement mantle. Discharge Disposition: PACU Additional Comments: The patient will continue management on the [facility] postoperatively with close consultation from her admitting [facility] as needed. Confirmation of central line placement will be performed by the anesthesia and ICU teams. Once she is stable enough to be transferred to the floor she will return to the [facility]. Her primary management will be through these medical services as her extremely complex combination of medical conditions and perioperative multisystem lability are more likely to acutely affect her overall health status and outcome than her orthopaedic surgical conditions or immediate perioperative and longer-term postoperative status. The Orthopaedic Surgery Service (Dr. Vega, [facility]) will continue consultative daily follow-up throughout the perioperative period and be available for any acute issues related to her perioperative or orthopaedic surgical conditions and care. As per discussion with the patients guardian (son) preoperatively, the patient' s previously designated resuscitation status will be reinstated in the recovery room unless otherwise designated by the operating surgeon and/or the anesthesia team. Once the patients condition is stabilized and she is transferred to the intensive care unit, her Health Care Directives restricted intervention (Do Not Intubate/Do Not Resuscitate/Comfort Measures Only) status will be reinstated unless otherwise designated by the patients power of securities attorney (son). This reinstatement of previous Health Care Directives designation will be automatic as previously planned if patient status is stable. If her condition remains labile upon arrival to the ICU then her DNI/DNR/ADHESION TESTER status will still be reinstated as planned but her son will be contacted to discuss details of lesser resuscitative measures which might be considered given that she has a central line in place. Once her central line has been removed and she is stable on the floor then her DNI/DNR/ADHESION TESTER status will be fully reinstated per her guardians instructions. Standard perioperative antibiotic prophylaxis (Ancef 2 grams every 8 hours) will continue for 48 hours until her first dressing change and until her central line is removed. There is no indication or requirement for additional perioperative antibiotics which can be discontinued after 48 hours assuming that her central line has been discontinued by that point. From an orthopaedic standpoint, the patient can begin clear liquid oral intake and advance as tolerated to her normal preoperative diet or whatever is recommended by the primary managing medical team as soon as she has adequately recovered from anesthesia and any sedating pain medication required perioperatively. Standard replacement IV fluids would also be reasonable at a rate of 100 cc/hr however both IV fluid and diet decisions will be deferred to the ICU, medicine and anesthesia teams postoperatively. If possible the [place] catheter should be removed by POD #2. Please [address] Vega as needed for any questions or to discuss coordination of these postoperative care protocols. The patient is at standard intravascular thromboembolic risk for extensive femur fracture ORIF procedures from an orthopaedic standpoint based on available literature. 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 Subcutaneous heparin would be reasonable initially and if she is able to mobilize (even with a lift) to a chair within a few days this may be the best balance of risk and benefit among the options for anticoagulation. If she has difficulty mobilizing at least to a chair then other options for prophylactic anticoagulant therapy may need to be considered. If alteration to the initial prophylaxis protocol are required because of medical considerations, please consult Dr. Vega prior to initiating any change in treatment so that any necessary corresponding changes can be made to the patients surgical site monitoring, nursing and physical therapy orders given the patients early postoperative status. The patient may mobilize to a chair using a lift and must maintain strict non- weight-bearing status on her operated right lower extremity. She may be able to advance to sliding or even left lower extremity pivot transfers as long as she remains compliant with eud-tjxcbu-udnvted status but she should be assisted and supervised at all times due to her demented status. It is likely that the patient will require lift transfers for 6 weeks or more and this should be the assumption for discharge planning to a higher level of care in the nursing facility than she required prior to her injury. Dressing changes should be performed at POD #2 and then daily thereafter until POD #5 or until the dressing and incision are clean and dry for 48 hours, whichever is latest. The patient will require inpatient rehabilitation program versus full-care nursing facility status. Discharge planning preparations for transfer to an appropriate inpatient rehabilitation or nursing care facility should begin on POD #1 or POD #2 depending on the patients medical status, progress toward transfer out of the ICU to the floor and progress toward meeting clinical and functional criteria for discharge to either of these types of programs. From an orthopaedic standpoint, the patient can be transferred as soon as standard criteria are met. The patients discharge analgesic and other medications will be managed by the primary medical team and the accepting facility to which the patient is transferred. Contact Dr. Vega for any orthopaedic questions regarding discharge planning. Assuming standard postoperative course, arrangements should be made for staple removal as well as anterior-posterior and lateral right femur radiographs extending from hip to knee at 14-18 days postoperatively. If the patient has difficulty with transportation and does not specifically need orthopaedic surgical assessment based on supervising rehabilitation physician evaluation then staple removal and portable radiographs can be performed at the rehabilitation facility and the radiographs sent for office review. Otherwise the patient will be seen at the office for initial follow-up at that time. Additional follow-up will then be arranged for 6 weeks postoperatively and this evaluation should be with Dr. Vega in the office if at all possible. CC: STUART BEASLEY,SRAVANTHI Curtis; ALFREDO DOS SANTOS PA-C
--- NOTE | 2016-04-15 17:28 | NUR ---
PT TRANSFERED TO 210
--- NOTE | 2016-04-15 21:45 | PN- Housestaff ---
Subjective Follow-up For: Acute blood loss anemia status post ORIF Fracture Subjective: Patient seemed somewhat confused this morning. She was able to answer me directly when I asked her if she knew where she was. She is currently a O 1. She is however able to deny any pain, or any complaints. No other acute overnight events. Review of Systems Constitutional: Reports: no symptoms. Objective Last 24 Hrs of Vital Signs/I&O Vital Signs Date Time Temp Pulse Resp B/P Pulse O2 O2 Flow FiO2 Ox Delivery Rate 04/15 1600 95 Nasal 3.0L Cannula 04/15 08 97 Nasal 3.0L Cannula 04/15 08 98.9 75 16 122/70 97 Nasal 3.0L Cannula 04/15 0620 95 Nasal 2.0L Cannula 04/15 0400 99 Nasal 3.0L Cannula 04/15 0000 95 Nasal 3.0L Cannula 04/15 0000 97.2 70 20 117/49 95 Nasal 3.0L Cannula Intake & Output 04/15 1600 04/15 0800 04/15 0000 Intake Total 745 1666 Output Total 200 175 Balance 545 1491 Intake, IV 625 1666 Intake, Oral 120 Number 0 0 Bowel Movements Output, Urine 200 175 Physical Exam General Appearance: Cooperative, No Acute Distress Skin: No Significant Lesion HEENT: Atraumatic, PERRLA, EOMI Neck: Supple Cardiovascular: Regular Rate, Normal S1, Normal S2 Lungs: Normal Air Movement Abdomen: Soft, No Tenderness Neurological: pt confused Extremities: RLE covered from bandage from hip to knee on lateral aspect of thigh. Bandage looked clean. Current Medications: Current Medications Sig/Hai Start time Last Medication Dose Route Stop Time Status Admin Acetaminophen 650 MG Q6P PRN 04/15 0100 AC PO Acetaminophen 1,000 MG Q8P PRN 04/15 0100 AC / IV 1700 Acetaminophen 650 MG Q6P PRN 04/14 0330 DC PO Acetaminophen 1,000 MG Q8P PRN 04/14 0330 DC IV Cefazolin Sodium 2 GM Q8H 04/15 0130 DC 04/15 N/A 1 UNIT IV 04/15 0959 1009 Dextrose/Sodium 1,000 ML Q13H 04/15 0100 AC 04/15 Chloride IV 1457 Dextrose/Sodium 1,000 ML Q20H 04/14 1145 DC 04/14 Chloride IV 04/15 0744 1157 Docusate Sodium 100 MG DAILY 04/15 1000 AC 04/15 PO 1140 Docusate Sodium 100 MG DAILY 04/14 1356 DC PO Heparin Sodium 5,000 UNIT Q8 04/15 0600 DC (Porcine) SC Hydromorphone HCl 2 MG .STK-MED ONE 04/14 2250 DC IM 04/14 2251 Magnesium Sulfate 1 GM ONCE ONE 04/15 0115 DC 04/15 Dextrose/Water 100 ML IV 04/15 0514 0122 Morphine Sulfate 2 MG Q6PRN PRN 04/15 0100 AC IV Morphine Sulfate 2 MG Q6PRN PRN 04/14 0330 DC IV Norepinephrine 4 MG .STK-MED ONE 04/15 0235 DC IV 04/15 0236 Phenylephrine HCl 40 MG .STK-MED ONE 04/15 0220 DC IM 04/15 0221 Phenylephrine HCl 80 MG Q24H 04/14 2245 DC Sodium Chloride 250 ML IV Polyethylene Glycol 17 GM DAILY 04/15 1000 AC 04/15 PO 1140 Polyethylene Glycol 17 GM DAILY 04/14 1000 DC PO Rivastigmine 9.5 MG DAILY 04/15 1000 AC 04/15 TOP 1140 Rivastigmine 9.5 MG DAILY 04/14 1000 DC 04 TOP 1051 Senna 187 MG AT BEDTIME 04/15 2200 AC PO Senna 187 MG AT BEDTIME 04/14 2200 DC PO Senna/Docusate Sodium 1 TAB BID PRN 04/15 0100 AC PO Senna/Docusate Sodium 1 TAB BID PRN 04/14 0330 DC PO Sodium Chloride 1,000 ML BOLUS ONE 04/15 0515 DC 04/15 IV 04/15 0614 0514 Sodium Chloride 500 ML BOLUS ONE 04/15 0115 DC 04/15 IV 04/15 0214 0124 Last 24 Hrs of Lab/Fidel Results Last 24 Hrs of Labs/Mics: Laboratory Tests 04/15/16 1454: Calcium 6.6 L 04/15/16 0600: Phosphorus Cancelled, Magnesium Cancelled, CBC w Diff Cancelled, WBC Cancelled, RBC Cancelled, Hgb Cancelled, Hct Cancelled, MCV Cancelled, MCH Cancelled, RDW Cancelled, Plt Count Cancelled, MPV Cancelled, PUBS MCHC Cancelled 04/15/16 0435: Anion Gap 4 L, Estimated GFR > 60, Glucose 164 H, Calcium 6.7 L, Phosphorus 3.2, Magnesium 1.9, Total Bilirubin 1.1, AST 33, ALT 31, Albumin 1.9 L, PT 14.1 H, INR 1.35 H, CBC w Diff NO MAN DIFF REQ, RBC 4.04 L, MCV 85.6, MCH 29.0, RDW 14.2, MPV 9.9, Gran % 85.7 H, Lymphocytes % 7.8 L, Monocytes % 6.4, Eosinophils % 0, Basophils % 0.1, Absolute Granulocytes 8.1 H, Absolute Lymphocytes 0.7 L, Absolute Monocytes 0.6, Absolute Eosinophils 0, Absolute Basophils 0, PUBS MCHC 33.9 04/14/16 2345: Anion Gap 3 L, Estimated GFR > 60, BUN/Creatinine Ratio 16.7, Phosphorus 4.0, Magnesium 1.4 L, CBC w Diff NO MAN DIFF REQ, RBC 4.34, MCV 86.3, MCH 29.1, RDW 14.3, MPV 10.4, Gran % 86.1 H, Lymphocytes % 7.0 L, Monocytes % 6.7, Eosinophils % 0.1, Basophils % 0.1, Absolute Granulocytes 9.7 H, Absolute Lymphocytes 0.8 L, Absolute Monocytes 0.8 H, Absolute Eosinophils 0, Absolute Basophils 0, PUBS MCHC 33.7 Microbiology 04/14 2329 UPPER RESP: Surveillance Culture - RECD 04/14 2329 GI: Surveillance Culture - RECD Assessment/Plan Assessment: 89 YO F with a pmh of demenita, hypertensioin, hyperlipidemia, osteoarthritis presents from her nursing facility after sustaining a fall that resulted in a femoral fracture. She has been admitted for co-mangement of her fracture. She went for: Open Reduction And Bridging Internal Condylar Fnxna-Xelra-Gbkay Fixation Of Right Periprosthetic Segmental Comminuted Closed Displaced Midshaft Femoral Fracture and Open Reduction And Bridging Internal Condylar Plate-Screw- Cable Fixation Of Right Segmental Comminuted Closed Displaced Supracondylar Femoral Fracture Without Intercondylar Extension. This is postop day 1. Plan Acute blood loss: Patient had blood loss around 1.5 L during surgical procedure. She received 4 units of PRBC and came to ICU for further monitoring. This a.m. her H&H is stable at 11.7 and 34.6 * Continue CBC * Transfuse as necessary Femoral fracture: This is postop day 1 for patient status post ORIF. Of note, she had arterial line removed yesterday because her right arm was getting cool and dusky. * Continue pain management * Follow-up surgery for recommendations * PT OT * Continue pain regimen Low platelet: Patient had platelet count 144, then 73, and today at 721. She had been getting heparin for DVT prophylaxis. There is concern for heparin- induced thrombocytopenia in this patient. Postsurgical PA we discontinued low molecular weight heparin. Patient is on Alps prophylaxis. But considering that she is status post orthopedic surgery she is at high risk for thrombotic events. Continue to monitor and restart prophylaxis per surgery. * DC chemical DVT prophylaxis * Continue Alps * Follow-up surgical recommendations Hypocalcemia: Patient had calcium 6.7. Patient is known to have osteoporosis. * Follow-up Repeat calcium at 3 PM DNR/DNI At regular diet Mechanical DVT prophylaxis Problem List: 1. Right femoral shaft fracture Pain Ratin Pain Location: none Pain Goal: Remain pain free Pain Plan: current reg Tomorrow's Labs & Rationales: bep concetta Consulting Request: Consulting Specialty: Orthopedics
[2016-04-16 00:36] VITALS: BP 132/58
--- NOTE | 2016-04-16 07:17 | PN- Orthopedic ---
Subjective Subjective: pod#2 s/p orif right femur fracture awake, responsive to commands denies cp, sob Objective Vital Signs and I&Os Vital Signs Date Time Temp Pulse Resp B/P Pulse O2 O2 Flow FiO2 Ox Delivery Rate 04/16 0036 97.9 80 20 132/58 96 02/ 0000 Nasal 3.0L Cannula / 1600 95 Nasal 3.0L Cannula 04/15 08 97 Nasal 3.0L Cannula 04/15 799 98.9 75 16 122/70 97 Nasal 3.0L Cannula Intake & Output / 0800 02/ 0000 02/ 1600 04/15 0800 / 0000 04/14 1600 Intake Total 600 024 230 8529 300 Output Total 225 275 200 175 100 Balance 375 25 545 1491 200 Intake, IV 600 322 157 4068 300 Intake, Oral 120 0 Number 0 0 Bowel Movements Output, Urine 225 275 200 175 100 Physical Exam: cv: rrr lungs: clear abd: soft, +bs ext: right leg drsg changed wound c/d/i thigh soft weak dorsiflexion +dp/pt pulses Assessment/Plan Assessment/Plan ortho stable plan cont medical team plan transfuse/repleat per medicine strict nwb right leg will need str Core Measures/Miscellaneous Venous Thromboembolism VTE Risk Factors: Age > 40, Immobility, paresis, Surgery VTE Contraindications: No Contraindications VTE Prophylaxis Ordered Inpt: Mechanical (ALPS/TEDS) VTE Diagnosis: No VTE Type: NONE VTE Confirmed by (Test): NONE Beta Christy Is Beta Christy a Home Med? No Antibiotics Is Patient on Antibiotics? Yes If Yes: prophylaxis
[2016-04-16 08:35] VITALS: BP 150/68
--- NOTE | 2016-04-16 09:00 | NUR ---
NURSING NOTE: LAB CALLED THIS NURSE AT THIS TIME TO REPORT CRITICAL LAB VALUE, PATIENT'S NASAL CULTURE CAME BACK POSITIVE MRSA IN THE NARES. RN MANAGER MEMBERSHIP AND RESIDENT NOTIFIED. PATIENT TRANSFERED FROM ROOM 210-2 TO ROOM 208. ALL BELONGINGS, MEDS, AND CHART TRANSFERED WITH PATIENT AT THIS TIME. WILL CONTINUE TO MONITOR.
[2016-04-16 09:31] LABS: ABSOLUTE BASOPHIL COUNT 0 /CUMM (0.0-0.2); ABSOLUTE EOSINOPHIL COUNT 0.1 /CUMM (0.0-0.7); ABSOLUTE GRANULOCYTE CT 8.4 /CUMM (1.4-6.5); ABSOLUTE LYMPH COUNT 1.3 /CUMM (1.2-3.4); ABSOLUTE MONOCYTE COUNT 1.2 /CUMM (0.10-0.60); BASOPHIL % 0.3 % (0.0-2.0); EOSINOPHIL % 0.8 % (0-5); GRANULOCYTE % 76.2 % (42.2-75.2); MEAN CORPUSCULAR HGB 29.4 PG (27.0-31.0); MEAN CORPUSCULAR HGB CONC 33.9 G/DL (33.0-37.0); MEAN CORPUSCULAR VOLUME 86.7 FL (81.0-99.0); MEAN PLATELET VOLUME 10.5 FL (7.4-10.4); RBC DISTRIBUTION WIDTH 14.6 % (11.5-14.5); RED BLOOD CELL CT 3.35 /CUMM (4.20-5.40)
[2016-04-16 11:02] LABS: HEMATOCRIT 29.1 % (37-47)
[2016-04-16 11:05] LABS: PLATELET COUNT 78 /CUMM (130-400)
--- NOTE | 2016-04-16 11:14 | PN- Housestaff ---
PIPE EUGENE 04/16/16 1114: Subjective Follow-up For: Status post right ORIF Subjective: Patient seen and examined this morning. Was little lethargic. She was on full liquids for breakfast that she had but she did not eat lunch. Her diet was changed to regular by Katherine. Review of Systems Constitutional: Reports: see HPI. Objective Last 24 Hrs of Vital Signs/I&O Vital Signs Date Time Temp Pulse Resp B/P Pulse O2 O2 Flow FiO2 Ox Delivery Rate 04/16 1629 98.4 88 20 142/62 100 04/16 0835 97.4 87 20 150/68 98 Nasal 3.5L Cannula 04/16 0800 Nasal 3.0L Cannula 04/16 0036 97.9 80 20 132/58 96 04/16 0000 Nasal 3.0L Cannula Intake & Output 04/16 1600 04/16 0800 04/16 0000 Intake Total 600 300 Output Total 250 225 275 Balance -250 375 25 Intake, IV 600 300 Output, Urine 250 225 275 Patient 72.575 kg Weight Physical Exam General Appearance: Alert, Oriented X3, Cooperative Skin: No Rashes HEENT: Atraumatic Cardiovascular: Regular Rate, Normal S1, Normal S2 Lungs: Clear to Auscultation, Normal Air Movement Abdomen: Normal Bowel Sounds, Soft, No Tenderness Current Medications: Current Medications Sig/Hai Start time Last Medication Dose Route Stop Time Status Admin Acetaminophen 650 MG Q6P PRN 04/15 0100 AC PO Acetaminophen 1,000 MG Q8P PRN 04/15 0100 AC 04/15 IV 1700 Bisacodyl 10 MG Q12P PRN 04/16 1045 AC 04/16 GA 1347 Dextrose/Sodium 1,000 ML Q13H 04/15 0100 AC 04/16 Chloride IV 1640 Docusate Sodium 100 MG BID 04/16 1045 AC 04/16 PO 1347 Docusate Sodium 100 MG DAILY 04/15 1000 DC 04/15 PO 1140 Heparin Sodium 5,000 UNIT Q8 04/15 0600 DC (Porcine) SC Morphine Sulfate 2 MG Q6PRN PRN 04/15 0100 AC IV Polyethylene Glycol 17 GM DAILY 04/15 1000 AC / PO 1347 Rivastigmine 9.5 MG DAILY 04/15 1000 AC 04/16 TOP 1348 Senna 187 MG AT BEDTIME 04/15 2200 DC PO Senna/Docusate Sodium 1 TAB BID PRN 04/15 0100 AC PO Last 24 Hrs of Lab/Fidel Results Last 24 Hrs of Labs/Mics: Laboratory Tests 04/16/16 0645: Anion Gap 3 L, Estimated GFR > 60, Glucose 112 H, Calcium 6.8 L, Phosphorus 1.5 L, Magnesium 2.0, Total Bilirubin 0.8, AST 97 H, ALT 41, Albumin 2.2 L, CBC w Diff NO MAN DIFF REQ, RBC 3.35 L, MCV 86.7, MCH 29.4, RDW 14.6 H, MPV 10.5 H, Gran % 76.2 H, Lymphocytes % 11.6 L, Monocytes % 11.1 H, Eosinophils % 0.8, Basophils % 0.3, Absolute Granulocytes 8.4 H, Absolute Lymphocytes 1.3, Absolute Monocytes 1.2 H, Absolute Eosinophils 0.1, Absolute Basophils 0, PUBS MCHC 33.9 Assessment/Plan Assessment: 89 YO F with a pmh of demenita, hypertensioin, hyperlipidemia, osteoarthritis presents from her nursing facility after sustaining a fall that resulted in a femoral fracture. She has been admitted for co-mangement of her fracture. She went for: Open Reduction And Bridging Internal Condylar Dyonm-Hphve-Urgbb Fixation Of Right Periprosthetic Segmental Comminuted Closed Displaced Midshaft Femoral Fracture and Open Reduction And Bridging Internal Condylar Plate-Screw- Cable Fixation Of Right Segmental Comminuted Closed Displaced Supracondylar Femoral Fracture Without Intercondylar Extension. Plan Patient is status post right hip ORIF Patient had blood loss around 1.5 L during surgical procedure. She received 4 units of PRBC and came to ICU for further monitoring. This a.m. her H&H is stable Thrombocytopenia: Patient had platelet count 144, then 73, and today at 721. She had been getting heparin for DVT prophylaxis. There is concern for heparin- induced thrombocytopenia in this patient. Postsurgical PA we discontinued low molecular weight heparin. Patient is on Alps prophylaxis. But considering that she is status post orthopedic surgery she is at high risk for thrombotic events. Continue to monitor and restart prophylaxis per surgery. Hypocalcemia: Patient had calcium 6.7. Patient is known to have osteoporosis. Calcium 6.8 this morning, her corrected calcium is 7.8 Would advise outpatient workup for hypocalcemia evaluating parathyroid hormone And would recommend a calcium supplement, will give Tums for now DNR/DNI At regular diet Mechanical DVT prophylaxis Problem List: 1. Right femoral shaft fracture Pain Ratin Pain Location: None Pain Goal: Pain 4 or less Pain Plan: Tylenol when necessary for pain Tomorrow's Labs & Rationales: None Consulting Request: Consulting Specialty: Orthopedics KHURRAM GUEVARA MD 04/16/16 1647: Attending MD Review Statement Attending Statement Attending MD Statement: examined this patient, discuss w/resident/PA/BIT TAPPER, agreed w/resident/PA/BIT TAPPER, reviewed EMR data (avail), discussed with nursing, discussed with case mgmt, amended to note Attending Assessment/Plan: The patient was seen and discussed with house staff. Agree with the plan of care as outlined.
[2016-04-16 16:29] VITALS: BP 142/62
--- NOTE | 2016-04-16 22:38 | NUR ---
NURSE NOTE: PT DUE TO VOID AT 2200, BLADDER SCANNED 252 ML IN BLADDER. PT MILO PAIN OR DISCOMFORT UPON PALPATION OF BLADDER. MD MADE AWARE. PER MD RECHECK AT MIDNIGHT. WILL CONTINUE TO MONITOR.
[2016-04-17 00:01] VITALS: BP 140/76
--- NOTE | 2016-04-17 01:41 | NUR ---
NURSE NOTE: PER MD ORDER, PT STRAIGHT CATH'D FOR UNABLE TO VOID AFTER MARION REMOVAL. 225 ML CLEAR DAMIR URINE . WILL CONTINUE TO MONITOR FOR URINE OUTPUT.
--- NOTE | 2016-04-17 07:41 | PN- Housestaff ---
See Addendum Subjective Follow-up For: Status post right hip ORIF Subjective: Patient seen and examined. Does not look so well this morning. Patient was evaluated by PT yesterday per their note patient does not express when she is in pain. Her Tylenol has been changed to round the clock. Patient is not stable for discharge today needs continued monitoring Review of Systems Constitutional: Reports: see HPI. Objective Last 24 Hrs of Vital Signs/I&O Vital Signs Date Time Temp Pulse Resp B/P Pulse O2 O2 Flow FiO2 Ox Delivery Rate 04/17 0853 98.2 79 20 134/76 99 Nasal 3.0L Cannula 04/17 0001 98.1 79 18 140/76 98 Nasal 3.5L Cannula 04/17 0000 Nasal 3.0L Cannula 04/16 1629 98.4 88 20 142/62 100 04/16 1600 Nasal 3.0L Cannula Intake & Output 04/17 1600 04/17 0800 04/17 0000 Intake Total 600 345 Output Total 225 0 Balance 375 345 Intake, IV 600 225 Intake, Oral 0 120 Number 0 0 Bowel Movements Output, Urine 225 0 Physical Exam General Appearance: Mild Distress, awake and drowsy Skin: No Rashes, No Breakdown Cardiovascular: Regular Rate, Normal S1, Normal S2 Lungs: Clear to Auscultation, Normal Air Movement Abdomen: slight tenderness to palpation of abdomen Neurological: slow confused speech patient has dementia Current Medications: Current Medications Sig/Hai Start time Last Medication Dose Route Stop Time Status Admin Acetaminophen 650 MG Q8 04/17 1400 AC PO Acetaminophen 650 MG Q6P PRN 04/15 0100 DC PO Acetaminophen 1,000 MG Q8P PRN 04/15 0100 DC 04/15 IV 1700 Bisacodyl 10 MG Q12P PRN 04/16 1045 AC 04/16 IL 1347 Calcium Carbonate 500 MG DAILY 04/16 1745 AC 04/16 PO 2230 Dextrose/Sodium 1,000 ML Q13H 04/15 0100 AC 04/17 Chloride IV 0347 Docusate Sodium 100 MG BID 04/16 1045 AC 04/16 PO 2229 Docusate Sodium 100 MG DAILY 04/15 1000 DC 04/15 PO 1140 Morphine Sulfate 2 MG Q6PRN PRN 04/15 0100 DC IV Polyethylene Glycol 17 GM DAILY 04/15 1000 AC 04/16 PO 1347 Potassium Phosphate 15 mMol ONE ONE 04/17 0800 AC Sodium Chloride 250 ML IV 04/17 1203 Rivastigmine 9.5 MG DAILY 04/15 1000 AC 04/16 TOP 1348 Senna 187 MG AT BEDTIME 04/15 2200 DC PO Senna/Docusate Sodium 1 TAB BID PRN 04/15 0100 AC PO Last 24 Hrs of Lab/Fidel Results Last 24 Hrs of Labs/Mics: Laboratory Tests 04/17/16 0915: Sodium Pending, Potassium Pending, Chloride Pending, Carbon Dioxide Pending, Anion Gap Pending, BUN Pending, Creatinine Pending, BUN/Creatinine Ratio Pending , CBC w Diff Pending, WBC Pending, RBC Pending, Hgb Pending, Hct Pending, MCV Pending, MCH Pending, RDW Pending, Plt Count Pending, MPV Pending, PUBS MCHC Pending Assessment/Plan Assessment: 89 YO F with a pmh of demenita, hypertensioin, hyperlipidemia, osteoarthritis presents from her nursing facility after sustaining a fall that resulted in a femoral fracture. She has been admitted for co-mangement of her fracture. She went for: Open Reduction And Bridging Internal Condylar Zcjxr-Dksud-Uuiuy Fixation Of Right Periprosthetic Segmental Comminuted Closed Displaced Midshaft Femoral Fracture and Open Reduction And Bridging Internal Condylar Plate-Screw- Cable Fixation Of Right Segmental Comminuted Closed Displaced Supracondylar Femoral Fracture Without Intercondylar Extension. Plan Patient is status post right hip ORIF Patient had blood loss around 1.5 L during surgical procedure. She received 4 units of PRBC and came to ICU for further monitoring. Her hemoglobin dropped yesterday, CBC pending this morning we'll continue to monitor We'll check her stool for guaiac Thrombocytopenia: Patient had platelet count 144, then 73, and today at 721. She had been getting heparin for DVT prophylaxis. There is concern for heparin- induced thrombocytopenia in this patient. Postsurgical PA we discontinued low molecular weight heparin. Patient is on Alps prophylaxis. But considering that she is status post orthopedic surgery she is at high risk for thrombotic events. Continue to monitor and restart prophylaxis per surgery. Hypocalcemia: Patient had calcium 6.7. Patient is known to have osteoporosis. Calcium 6.8 this morning, her corrected calcium is 7.8. Lab work from the same pending Would advise outpatient workup for hypocalcemia evaluating parathyroid hormone And would recommend a calcium supplement, will give Tums for now DNR/DNI At regular diet Mechanical DVT prophylaxis Problem List: 1. Right femoral shaft fracture Pain Ratin Pain Location: Patient not able to verbalize looks most likely in right hip/abdominal region Pain Goal: Pain 4 or less Pain Plan: Tylenol [id number] for pain Tomorrow's Labs & Rationales: CBC BP Consulting Request: Consulting Specialty: Orthopedics
[2016-04-17 08:53] VITALS: BP 134/76
[2016-04-17 10:24] LABS: ABSOLUTE BASOPHIL COUNT 0 /CUMM (0.0-0.2); ABSOLUTE EOSINOPHIL COUNT 0.2 /CUMM (0.0-0.7); ABSOLUTE GRANULOCYTE CT 4.7 /CUMM (1.4-6.5); ABSOLUTE LYMPH COUNT 1.4 /CUMM (1.2-3.4); BASOPHIL % 0.3 % (0.0-2.0); EOSINOPHIL % 2.3 % (0-5); GRANULOCYTE % 64.9 % (42.2-75.2); HEMATOCRIT 25.3 % (37-47); MEAN CORPUSCULAR HGB 29.5 PG (27.0-31.0); MEAN CORPUSCULAR HGB CONC 33.7 G/DL (33.0-37.0); MEAN CORPUSCULAR VOLUME 87.5 FL (81.0-99.0); PLATELET COUNT 95 /CUMM (130-400); RBC DISTRIBUTION WIDTH 14.7 % (11.5-14.5); RED BLOOD CELL CT 2.89 /CUMM (4.20-5.40); WHITE BLOOD CELL COUNT 7.2 /CUMM (4.8-10.8)
[2016-04-17 16:24] VITALS: BP 142/82
[2016-04-17 18:44] LABS: ABSOLUTE BASOPHIL COUNT 0 /CUMM (0.0-0.2); ABSOLUTE EOSINOPHIL COUNT 0.2 /CUMM (0.0-0.7); ABSOLUTE GRANULOCYTE CT 4.1 /CUMM (1.4-6.5); ABSOLUTE LYMPH COUNT 1.8 /CUMM (1.2-3.4); ABSOLUTE MONOCYTE COUNT 0.9 /CUMM (0.10-0.60); BASOPHIL % 0.5 % (0.0-2.0); EOSINOPHIL % 2.7 % (0-5); GRANULOCYTE % 58.2 % (42.2-75.2); HEMATOCRIT 25.8 % (37-47); MEAN CORPUSCULAR HGB 28.5 PG (27.0-31.0); MEAN CORPUSCULAR HGB CONC 32.4 G/DL (33.0-37.0); MEAN CORPUSCULAR VOLUME 87.9 FL (81.0-99.0); MEAN PLATELET VOLUME 10.1 FL (7.4-10.4); PLATELET COUNT 104 /CUMM (130-400); RBC DISTRIBUTION WIDTH 14.6 % (11.5-14.5); RED BLOOD CELL CT 2.93 /CUMM (4.20-5.40); WHITE BLOOD CELL COUNT 7.1 /CUMM (4.8-10.8)
[2016-04-18 00:31] VITALS: BP 130/74
--- NOTE | 2016-04-18 07:29 | NUR ---
LATE ENTRY: pT DID NOT VOID ALL NIGHT. BLADDER SCANNED AT 4 AM. 400 ML. MD ALCANTAR MADE AWARE. ORDER TO STRAIGHT CATH PT, 400 ML/URINE OUT.
[2016-04-18 07:59] VITALS: BP 120/58
[2016-04-18 08:45] LABS: ABSOLUTE BASOPHIL COUNT 0 /CUMM (0.0-0.2); ABSOLUTE EOSINOPHIL COUNT 0.3 /CUMM (0.0-0.7); ABSOLUTE GRANULOCYTE CT 2.9 /CUMM (1.4-6.5); ABSOLUTE LYMPH COUNT 1.4 /CUMM (1.2-3.4); ABSOLUTE MONOCYTE COUNT 0.7 /CUMM (0.10-0.60); BASOPHIL % 0.8 % (0.0-2.0); EOSINOPHIL % 5.5 % (0-5); GRANULOCYTE % 54.3 % (42.2-75.2); MEAN CORPUSCULAR HGB 28.7 PG (27.0-31.0); MEAN CORPUSCULAR HGB CONC 32.9 G/DL (33.0-37.0); MEAN CORPUSCULAR VOLUME 87.3 FL (81.0-99.0); MEAN PLATELET VOLUME 9.5 FL (7.4-10.4); PLATELET COUNT 122 /CUMM (130-400); RBC DISTRIBUTION WIDTH 14.4 % (11.5-14.5); RED BLOOD CELL CT 2.98 /CUMM (4.20-5.40); WHITE BLOOD CELL COUNT 5.3 /CUMM (4.8-10.8)
--- NOTE | 2016-04-18 09:21 | PN- Housestaff ---
PIPE EUGENE 04/18/16 0920: Subjective Follow-up For: Poor oral intake Post right hip fracture Subjective: Patient seen and examined. She is more awake and alert this morning however confused due to underlying dementia. Per nurse, patient's right hip wound has been having a serous discharge and sometimes seroanginous. Her oral intake has been poor. Review of Systems Constitutional: Reports: see HPI. Objective Last 24 Hrs of Vital Signs/I&O Vital Signs Date Time Temp Pulse Resp B/P Pulse O2 O2 Flow FiO2 Ox Delivery Rate 04/18 0759 97.7 87 20 120/58 92 Nasal 3.0L Cannula 04/18 0031 97.7 86 18 130/74 93 Nasal 3.5L Cannula 04/18 0000 Nasal 3.0L Cannula 04/17 1705 94 Nasal 3.0L Cannula 04/17 1624 98.6 81 20 142/82 98 Nasal 3.0L Cannula 04/17 1600 Nasal 3.0L Cannula 04/17 1248 Nasal 3.0L Cannula 04/17 1245 98 Nasal 3.0L Cannula Intake & Output 04/18 1600 04/18 0800 04/18 0000 Intake Total 720 1000 Output Total 400 Balance 320 1000 Intake, IV 600 600 Intake, Oral 120 400 Number 1 Bowel Movements Output, Urine 400 Physical Exam General Appearance: awake alert Skin: No Rashes, No Breakdown HEENT: Atraumatic Neck: Supple Cardiovascular: Normal S1, Normal S2 Lungs: dec breath sounds b/l Abdomen: Soft, No Tenderness Current Medications: Current Medications Sig/Hai Start time Last Medication Dose Route Stop Time Status Admin Acetaminophen 650 MG Q6P PRN 04/18 0915 AC PO Acetaminophen 650 MG Q8 04/17 1400 DC 04/18 PO 0506 Albuterol Sulfate 3 ML Q6-PRN PRN 04/17 1230 AC INH Bisacodyl 10 MG Q12P PRN 04/16 1045 AC 04/16 SC 1347 Calcium Carbonate 500 MG DAILY 04/16 1745 AC 04/18 PO 1015 Dextrose/Sodium 1,000 ML Q13H 04/15 0100 DC 04/18 Chloride IV 0508 Docusate Sodium 100 MG BID 04/16 1045 AC 04/18 PO 1014 Ketorolac 30 MG ONCE ONE 04/170 DC 04/17 Tromethamine IV 04/17 220 2222 Polyethylene Glycol 17 GM DAILY 04/15 1000 AC 04/18 PO 1015 Potassium Phosphate 15 mMol ONE ONE 04/18 0930 AC 04/18 Sodium Chloride 250 ML IV 04/18 1333 1014 Potassium Phosphate 15 mMol ONE ONE 04/17 0800 DC 04/17 Sodium Chloride 250 ML IV 04/17 1203 1104 Rivastigmine 9.5 MG DAILY 04/15 1000 AC 04/18 TOP 1015 Senna/Docusate Sodium 1 TAB BID PRN 04/15 0100 AC PO Tramadol HCl 50 MG Q6 PRN 04/18 0300 DC 04/18 PO 0335 Last 24 Hrs of Lab/Fidel Results Last 24 Hrs of Labs/Mics: Laboratory Tests 04/18/16 0825: Anion Gap 2 L, Estimated GFR > 60, BUN/Creatinine Ratio 16.0, Calcium 7.4 L, Phosphorus 1.9 L, Prealbumin 4.6 L, CBC w Diff NO MAN DIFF REQ, RBC 2.98 L, MCV 87.3, MCH 28.7, RDW 14.4, MPV 9.5, Gran % 54.3, Lymphocytes % 25.8, Monocytes % 13.6 H, Eosinophils % 5.5 H, Basophils % 0.8, Absolute Granulocytes 2.9, Absolute Lymphocytes 1.4, Absolute Monocytes 0.7 H, Absolute Eosinophils 0.3, Absolute Basophils 0, PUBS MCHC 32.9 L 04/18/16 0530: Urinalysis LIGHT H, Urine Color YEL, Urine Clarity HAZY H, Urine pH 6.0, Ur Specific [place] 1.025, Urine Protein TRACE H, Urine Ketones NEG, Urine Nitrite NEG, Urine Bilirubin NEG, Urine Urobilinogen 1.0, Ur Leukocyte Esterase NEG, Ur Microscopic SEDIMENT EXAMINED, Urine RBC 3-5, Urine WBC 1-3 H, Ur Epithelial Cells FEW, Urine Mucus MANY H, Urine Hemoglobin NEG, Urine Glucose NEG 04/17/16 2000: CBC w Diff Cancelled, WBC Cancelled, RBC Cancelled, Hgb Cancelled, Hct Cancelled , MCV Cancelled, MCH Cancelled, RDW Cancelled, Plt Count Cancelled, MPV Cancelled, PUBS MCHC Cancelled 04/17/16 1800: CBC w Diff NO MAN DIFF REQ, RBC 2.93 L, MCV 87.9, MCH 28.5, RDW 14.6 H, MPV 10.1, Gran % 58.2, Lymphocytes % 25.3, Monocytes % 13.3 H, Eosinophils % 2.7, Basophils % 0.5, Absolute Granulocytes 4.1, Absolute Lymphocytes 1.8, Absolute Monocytes 0.9 H, Absolute Eosinophils 0.2, Absolute Basophils 0, PUBS MCHC 32.4 L Assessment/Plan Assessment: 89 YO F with a pmh of demenita, hypertensioin, hyperlipidemia, osteoarthritis presents from her nursing facility after sustaining a fall that resulted in a femoral fracture. She has been admitted for co-mangement of her fracture. She went for: Open Reduction And Bridging Internal Condylar Ixuqt-Fzuzr-Bqksy Fixation Of Right Periprosthetic Segmental Comminuted Closed Displaced Midshaft Femoral Fracture and Open Reduction And Bridging Internal Condylar Plate-Screw- Cable Fixation Of Right Segmental Comminuted Closed Displaced Supracondylar Femoral Fracture Without Intercondylar Extension. Plan Patient is status post right hip ORIF Patient had blood loss around 1.5 L during surgical procedure. She received 4 units of PRBC and came to ICU for further monitoring. Her hemoglobin dropped on 04/17/16, she was transfused with another unit of blood. Patient has been having serous and seroanginous discharge from her right hip wound. Pain control with tylenol q6prn for pain avoid narcotics due to confusion. Thrombocytopenia: Patient had platelet count 144, then 73, and today at 721. She had been getting heparin for DVT prophylaxis. 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 Postsurgical PA we discontinued low molecular weight heparin. Patient is on Alps prophylaxis. Hypocalcemia: Patient had calcium 6.7. Patient is known to have osteoporosis. Calcium 7.4, corrected with previous albumin to be 8.4 Can continue tums. Malnutrition Patient has been having poor oral intake. She only ate 6 bites in breathfast. Will monitor for lunch. Son Bebo called this morning, who is also the power of energy attorney, he states that he wants the patient to be sent back to rehabilitation, [facility]. Her poor oral intake is her baseline and he does not want patient to be pricked for any blood draws. DNR/DNI At regular diet Mechanical DVT prophylaxis Problem List: 1. Right femoral shaft fracture Pain Ratin Pain Location: right hip Pain Goal: Pain 4 or less Pain Plan: tylenol for pain prn Tomorrow's Labs & Rationales: none Consulting Request: Consulting Specialty: Orthopedics KHURRAM GUEVARA MD 04/18/16 1620: Attending MD Review Statement Attending Statement Attending MD Statement: examined this patient, discuss w/resident/PA/MANUFACTURERS AGENT, agreed w/resident/PA/MANUFACTURERS AGENT, reviewed EMR data (avail), discussed with nursing, amended to note Attending Assessment/Plan: The patient was seen and discussed with house staff. Taking ensure well with diminished appetite. OK to send back to [facility] which is son's wishes.
[2016-04-18] MEDS ORDERED: CALCIUM CARBON200 MG PO (12:51)
[2016-04-18] MEDS ORDERED: ALBUTEROL2.5 MG/3 M INH (12:51)
--- NOTE | 2016-04-18 12:52 | Patient Discharge Instructions ---
Discharge Instructions General Discharge Information Special Instructions: Please follow up with PCP within 7 days of discharge Acute Coronary Syndrome Inclusion Criteria At DC or during hospital stay patient has or had the following: ACS DIAGNOSIS No Discharge Core Measures Meds if any: Prescribed or Continued at Discharge Meds if any: NOT Prescribed or Continued at Discharge Congestive Heart Failure Inclusion Criteria At DC or during hospital stay patient has or had the following: CHF DIAGNOSIS No Discharge Core Measures Meds if any: Prescribed or Continued at Discharge Meds if any: NOT Prescribed or Continued at Discharge Cerebrovascular accident Inclusion Criteria At DC or during hospital stay patient has or had the following: CVA/TIA Diagnosis No Discharge Core Measures Meds if any: Prescribed or Continued at Discharge Meds if any: NOT Prescribed or Continued at Discharge Venous thromboembolism Inclusion Criteria VTE Diagnosis No VTE Type NONE VTE Confirmed by (Test) NONE Discharge Core Measures - Per Current guidelines, there needs to be overlap - treatment for the first 5 days of Warfarin therapy. - If discharged on Warfarin prior to 5 days of - overlap therapy, the patient will need to be - assessed for post discharge needs including - *Post discharge parental anticoagulation - *Warfarin and/or parental anticoagulation education - *Follow up date to check INR post discharge At least 5 days overlap therapy as Inpatient No Meds if any: Prescribed or Continued at Discharge Note: Overlap Therapy is Warfarin and Anticoagulant Meds if any: NOT Prescribed or Continued at Discharge
--- NOTE | 2016-04-18 12:52 | Discharge Summary ---
Visit Information Visit Dates Admission Date: 04/13/16 Discharge Date: 04/18/16 Hospital Course Course Attending Physician: KHURRAM GUEVARA MD Primary Care Physician: Mimi JC MD Consulting Request: Consulting Specialty: Orthopedics Hospital Course: 89 YO F with a pmh of demenita, hypertensioin, hyperlipidemia, osteoarthritis presents from her nursing facility after sustaining a fall that resulted in a femoral fracture. She has been admitted for co-mangement of her fracture. She went for: Open Reduction And Bridging Internal Condylar Kubht-Djbsj-Scvyg Fixation Of Right Periprosthetic Segmental Comminuted Closed Displaced Midshaft Femoral Fracture and Open Reduction And Bridging Internal Condylar Plate-Screw- Cable Fixation Of Right Segmental Comminuted Closed Displaced Supracondylar Femoral Fracture Without Intercondylar Extension. Plan Patient is status post right hip ORIF Patient had blood loss around 1.5 L during surgical procedure. She received 4 units of PRBC and came to ICU for further monitoring. Her hemoglobin dropped on 04/17/16, she was transfused with another unit of blood. Patient has been having serous and seroanginous discharge from her right hip wound. Pain was controlled with tylenol q6prn. Patient has been doing well with that regimen. Avoid narcotics due to confusion. Thrombocytopenia: Patient had platelet count 144, then 73, and today at 721. She had been getting heparin for DVT prophylaxis. Heprin SC was d/cd due to suspicion of HIT. Patient was kept on ALPs Hypocalcemia: Patient had calcium 6.7. Patient is known to have osteoporosis. Calcium 7.4, corrected with previous albumin to be 8.4 Can continue tums at rehab facility. Malnutrition Patient has been having poor oral intake. She only ate 6 bites in breakfast. Son states that on baseline she needs to be feed by entry level marketing assistant. Low oral intake during lunch time too but she drinks her ensure supplements. Son Bebo called this morning, who is also the power of life coach, he states that he wants the patient to be sent back to rehabilitation, [facility]. Her poor oral intake is her baseline and he does not want patient to be pricked for any blood draws. Allergies: Coded Allergies: donepezil (UNKNOWN 09/02/15) Disposition Summary Disposition Principal Diagnosis: S/p ORIF right hip fracture Additional Diagnosis: thrombocytopenia Poor oral intake Discharge Disposition: SNF Discharge Instructions General Discharge Information Code Status: Do Not Resucitate/Intubat Patient's Diet: heart healthy Patient's Activity: as tolerated Follow-Up Instructions/Appts: Please follow up with PCP upon discharge Medications at Discharge Discharge Medications: Continue taking these medications: Alendronate Sodium (Alendronate Sodium) 70 MG TABLET 1 Tablet ORAL Once a Week Qty = 4 Instructions: in the morning, at least 30 minutes before the first food, beverage, or medication of the day Comments: NOT GIVEN IN HOSPITAL Cholecalciferol (Vitamin D3) (Vitamin D3) 50,000 UNIT CAPSULE 1 Capsule ORAL ONCE A MONTH Rivastigmine (Exelon) 9.5 MG/Patch PAT 1 Patch On the skin DAILY Folic Acid (Folic Acid) 1 MG TABLET 1 Tablet ORAL TAKE AT BEDTIME Qty = 30 Sennosides (Senna) 8.6 MG TABLET 2 Tablet ORAL TWICE DAILY [OSCAL] TAB ORAL TAKE AT BEDTIME Multivitamin (Daily Multiple Vitamin) 1 EACH TABLET 1 Tablet ORAL TAKE AT BEDTIME Trazodone HCl (Trazodone HCl) 50 MG TABLET 0.5 Tablet ORAL TAKE AT BEDTIME Qty = 15 Start taking the following new medications: Albuterol Sulfate (Albuterol Sulfate) 2.5 MG/3 ML (0.083 %) VIAL.NEB 3 Milliliters Inhale through mouth EVERY 6 HOURS NEEDED as needed for WHEEZING Days = 60 No Refills Calcium Carbonate (Calcium Carbonate) 200 MG CALCIUM (500 MG) TAB.CHEW 500 Milligram ORAL DAILY Days = 30 No Refills Copies To: KHURRAM GUEVARA MD; Mimi JC MD Attending MD Review Statement Documenting Attending: KHURRAM GUEVARA MD Other Findings: The patient was seen and discussed with resident. Agree with plan of care. Back to SNF today.
[2016-04-18 15:59] VITALS: BP 120/58
[2016-04-18 16:16] VITALS: BP 126/60
--- NOTE | 2016-04-19 18:29 | PN- Orthopedic ---
Surgical Brief Attending Note Brief Attending Note: Patient seen by Dr. Vega on 04/17/2016 @ 06:00 PM: Esthela Stockton is an 89 year old white female now POD #3 from extensive, full length lateral femoral lvxjoecn-azdrk-chsoi-cable ORIF for displaced, segmental periprosthetic midshaft and supracondylar femur fracture sustained on 2016. She has done quite well postoperatively and was sufficiently stable throughout the day today that she was transferred to the floor without incident. She has not required any further fluid or significant medication resuscitative measures. Her pain seems to be adequately controlled. She is currently sitting comfortably in a chair. By report she tolerated lift transfer without difficulty. On examination, she appears comfortable in the seated position. She is afebrile with vital signs stable. She is awake and alert. She is less sedated than in the ICU. Her dressing is clean and dry. It was partially removed, the incision was confirmed to also be clean and dry and the dressing was reapplied. Her thigh swelling continues to decrease and this area is only minimally tender. She is distally neurovascularly intact to gross assessment and easily moves both feet and all toes to command without discomfort. There is no posterior calf or anteromedial thigh tenderness to palpation. With the leg supported and avoiding any thigh rotation, she tolerated 30 degrees of knee flexion and almost 45 degrees of hip flexion with only moderate discomfort. She should be able to tolerate this with daily PT here in the hospital and in rehabilitation or nursing facility care after discharge from the hospital. Agree with continued plans per Medicine team. Continue strict non-weight- bearing status for the right lower extremity. Continue out of bed to chair. Physical therapy can be initiated for gentle and supported sagittal plane hip and knee range of motion exercises taking care to avoid rotational stress to the thigh. She should be reminded to do foot and ankle motion exercises frequently throughout the day. Begin discharge planning.
--- NOTE | 2016-04-19 18:38 | PN- Orthopedic ---
Surgical Brief Attending Note Brief Attending Note: Patient seen by Dr. Vega on 04/18/2016 @ 06:30 PM: Esthela Stockton is an 89 year old white female now POD #4 from full length lateral femoral yxeytqyv-scrnx-zmxue-cable ORIF for displaced, segmental periprosthetic midshaft and supracondylar femur fracture sustained on 2016. She has done quite well postoperatively and should be ready for nursing facility or rehabilitation program transfer over the next several days. Her pain seems to be adequately controlled. She is being mobilized to a chair without difficulty by report. On examination, she appears comfortable in the seated position. She is afebrile with vital signs stable. She is awake and alert. She is less sedated overall reasonably comfortable. Her dressing is clean and dry. It is being changed daily. Her thigh swelling continues to decrease and this area is only minimally tender. She is distally neurovascularly intact to gross assessment and easily moves both feet and all toes to command without discomfort. There is no posterior calf or anteromedial thigh tenderness to palpation. With the leg supported and avoiding any thigh rotation, she again tolerated 30 degrees of knee flexion and almost 45 degrees of hip flexion with only moderate discomfort. She should be able to tolerate this with daily PT at the nursing facility after discharge from the hospital. Agree with continued plans per Medicine team. Continue all other plans as outlined in previous notes. Continue discharge planning. Briefly discussed excellent postoperative status, discharge and follow-up plans with son by phone today. He is still trying to arrange travel to this area and remains involved in all care plans.
== END 2016-04-18 17:27 | DRG 481 ==
LOC: ENRESERVDT → ENRESERVTM → ERH 16:21 → ENPENDDIS 21:12 → 2NB 21:12 → ERHI 21:12 → CRI 21:12 → 2NB 04-14 01:25 → CRI 04-14 23:48 → 2NB 04-15 17:22
PROVIDERS: Internal Medicine; Physician Assistant Medical; Physician Assistant Surgical; Student in an Organized Health Care Education/Training Program; ADMIT Internal Medicine
PROC: 02HV33Z Insertion of Infusion Device into Superior Vena Cava, Percutaneous Approach (ICD-10-PCS; principal; 2016-04-14)
PROC: 0QS804Z Reposition Right Femoral Shaft with Internal Fixation Device, Open Approach (ICD-10-PCS; principal; 2016-04-14)
PROC: B548ZZA Ultrasonography of Superior Vena Cava, Guidance (ICD-10-PCS; principal; 2016-04-14)
PROC: 30233N1 Transfusion of Nonautologous Red Blood Cells into Peripheral Vein, Percutaneous Approach (ICD-10-PCS; principal; 2016-04-14)
DX: M97.01XA Periprosthetic fracture around internal prosthetic right hip joint, initial encounter (principal); D62 Acute posthemorrhagic anemia; E46 Unspecified protein-calorie malnutrition; D69.6 Thrombocytopenia, unspecified; W18.30XA Fall on same level, unspecified, initial encounter; Y92.129 Unspecified place in nursing home as the place of occurrence of the external cause; Z68.25 Body mass index [BMI] 25.0-25.9, adult; M81.0 Age-related osteoporosis without current pathological fracture; I10 Essential (primary) hypertension; E78.5 Hyperlipidemia, unspecified; M19.90 Unspecified osteoarthritis, unspecified site; Z66 Do not resuscitate; H35.30 Unspecified macular degeneration; Y93.9 Activity, unspecified
CPT/HCPCS: 2NBP; 2NBSP; CCU; ERO; 36415; 71100-RT; 73502-RT; 73552; 73560-RT; 73610-RT; 81001; 81003; 82436; 86920; 87086; 93005; 93010; 96374; 96375; 96376; 97110-GO; 97162-GP; 97166-GO; 97530-GO; C1713; J0131; J0690; J1630; J1644; J1885; J3360; J7040; J7042; P9016